=== PATIENT | female | born 1950 | race Caucasian/White ===

== ENCOUNTER → 2017-02-09 | Outpatient (CLI) | payer OTHER ==
--- NOTE | 2017-02-09 09:45 | DIAGNOSTIC IMAGING REPORT ---
ABDOMINAL ULTRASOUND, RIGHT UPPER QUADRANT HISTORY: GALLBLADDER POLYP. COMPARISON: Abdominal ultrasound 07/09/2015. Abdominal CT 02/22/2016. FINDINGS: Pancreas: The pancreas demonstrates a normal echotexture. Liver: Slight increase in size in the 2.3 x 2.0 x 1.6 cm hyperechoic lesion within the right hepatic lobe. No new hepatic lesions. Gallbladder: No gallbladder wall thickening. No gallstones. A few small polyps within the gallbladder measuring up to 2 mm. CBD: 3 mm. Right kidney: No hydronephrosis. IMPRESSION: 1. Slight increase in size in the 2.3 x 2.0 x 1.6 cm hyperechoic lesion within the right hepatic lobe. Continued follow-up is recommended. 2. A few small gallbladder polyps measuring up to 2 mm. No gallstones. Electronically signed by: Venkata Lugo M.D. 02/09/2017 9:44 AM Dictated Date/Time: 02/09/2017 9:40 AM
== END | disposition home or self-care (01) ==
LOC: C.ULTR 08:53
PROVIDERS: ATTEND Nurse Practitioner Family
DX: K82.4 Cholesterolosis of gallbladder (principal)

== ENCOUNTER → 2017-04-28 | Outpatient (CLI) | payer OTHER ==
--- NOTE | 2017-04-28 12:43 | MAMMOGRAPHY REPORT ---
BILATERAL DIGITAL SCREENING MAMMOGRAM WITH CAD: 04/28/2017 CLINICAL HISTORY: Routine screening. Patient has no complaints. TECHNIQUE: Current study was also evaluated with a Computer Aided Detection (CAD) system. Bilateral CC and MLO views were obtained. COMPARISON: Comparison is made to exams dated: 04/26/2016 mammogram, 04/22/2015 mammogram, 04/21/2014 damien mogram, 04/17/2013 mammogram, 04/16/2012 mammogram, and 04/14/2011 mammogram - [facility] BREAST COMPOSITION: The tissue of both breasts is heterogeneously dense, which may obscure small mas ses. FINDINGS: No suspicious masses, calcifications, or areas of architectural distortion are noted in ei ther breast. There has been no significant interval change compared to prior exams. IMPRESSION: ACR BI-RADS CATEGORY 1: NEGATIVE There is no mammographic evidence of malignancy. A 1 year screening mammogram is recommended. The pa tient will receive written notification of the results. Approximately 10% of breast cancers are not detected with mammography. A negative mammographic report should not delay biopsy if a clinically suggestive mass is present. Nathalia Veliz M.D. /:04/28/2017 10:25:12 Superintendent Meters: Odalis MARTIN(Bon)(M), [facility] letter sent: Normal 1/2 BI-RADS Code: ACR BI-RADS Category 1: Negative
== END | disposition home or self-care (01) ==
LOC: C.MAMM 09:22
PROVIDERS: ATTEND Family Medicine
DX: Z12.31 Encounter for screening mammogram for malignant neoplasm of breast (principal)

== ENCOUNTER → 2017-05-31 | Outpatient (CLI) | payer OTHER ==
--- NOTE | 2017-05-31 08:18 | DIAGNOSTIC IMAGING REPORT ---
Biliary ultrasound CLINICAL HISTORY: K82.4,K76.9 gallbladder polyps. Hepatic lesion. COMPARISON STUDY: 02/09/2017 FINDINGS: The pancreas appears normal as visualized. There is no ductal dilatation. The common bile duct measures 3 mm. There is no right-sided hydronephrosis. There is a stable 19 mm echogenic lesion within the right lobe of the liver. This is consistent with the patient's suspected hepatic hemangioma. No gallstones are visualized. There are a few equivocal tiny gallbladder polyps. IMPRESSION: Stable 19 mm echogenic lesion within the right lobe of the liver, consistent with a hepatic hemangioma Electronically signed by: Dagoberto Ponce M.D. 05/31/2017 8:17 AM Dictated Date/Time: 05/31/2017 8:15 AM
== END | disposition home or self-care (01) ==
LOC: C.ULTR 06:56
PROVIDERS: ATTEND Nurse Practitioner Family
DX: K82.4 Cholesterolosis of gallbladder (principal); K76.9 Liver disease, unspecified

== ENCOUNTER 2025-03-21 14:31 | Observation (INO) ==
--- NOTE | 2025-03-21 14:53 | Emergency Department Note ---
Impression & Plan New onset atrial flutter, Atrial flutter with rapid ventricular response, Palpitations ED Provider Note NAME: ERICA GILBERT AGE: 74 SEX: F : 1950 ARRIVES VIA: Walk-In INFORMANT: Patient ED PROVIDER(S): Segundo Sutton MD CHIEF COMPLAINT: new atrial flutter, referred PLAN: Disposition: Admit MEDICAL DECISION MAKING: The patient is a pleasant 74-year-old woman who presents to the emergency department via walk-in accompanied by family and referred by her PCP office after having an outpatient EKG demonstrated new atrial flutter. The patient's EKGs also appeared to have some artifact and interpretation by the machine to suggest ST elevation however likely artifactual from sawtooth pattern. Patient denies having any chest pain or shortness of breath. She has any nausea or vomiting. She reports that she has had a "fast heart rate for months. Most recently she reports having outpatient colonoscopy where she was told that she should "get that checked out". Otherwise she denies any dizziness, headache, symptoms. On evaluation the patient is no distress, afebrile with heart rate in the 120s- 130s and atrial flutter and vital signs otherwise stable. She appears clinically dry. EKG demonstrates atrial flutter without overt acute ischemia. Chest x-ray negative for acute cardiopulmonary process per my preliminary independent interpretation. WBC, H/H and platelets within normal limits. Chemistry without metabolic acidosis. Electrolytes and LFTs unremarkable. Total bili 1.7, nonspecific LFTs otherwise normal. High-sensitivity troponin within normal limits. Lipase is normal. TSH within limits. UA without evidence of infection. Trace ketones noted as clinically dry appearance. Patient's heart rate did improve somewhat with IV fluid hydration. However still remained in atrial flutter. Given the upcoming weekend the patient and family at bedside agree with plan for admission for further management and assessment. 5 mg of IV Lopressor was ordered for additional rate control. Will defer anticoagulation to admitting team. Case was discussed with Dr. Millan, [facility] hospitalist, [facility] hospitalist service to evaluate the patient for admission. Further management per admitting team. Triage Nursing notes reviewed and agree them. Prior/external medical records reviewed Vital Signs: reviewed Differential diagnosis: Premature contractions, electrolyte abnormality, cardiac dysrhythmia, thyroid dysfunction, pulmonary embolism, infection, gastrointestinal, as well as other pathologies. ER treatment provided: See below. Diagnostics interpreted by me: ECG: Atrial flutter with variable AV block, 115 bpm, nonspecific ST abnormality, no overt ST ovation or depression, QTc 395, QRS 70. Cardiac Monitoring: An order for continuous cardiac monitoring was placed and demonstrated Atrial flutter with variable AV block, 115 bpm. Laboratory studies: See below Imaging studies: See below Consultation(s): Dr. Millan, [facility] hospitalist. HPI: Per MDM. ROS: See above HPI for pertinent positives & negatives. A total of 10 systems reviewed and were otherwise negative. VITALS:See Below PHYSICAL EXAMINATION: GENERAL: Awake, alert, well-appearing, in no distress HENT: Normocephalic, atraumatic. Oropharynx with dry mucous membranes and otherwise unremarkable. EYES: Normal conjunctiva. Sclera non-icteric. NECK: Supple. No nuchal rigidity. FROM. No JVD. RESPIRATORY: Clear to auscultation. CARDIAC: Tachycardic rate, normal rhythm. Extremities warm and well perfused. Pulses equal. ABDOMEN: Soft, non-distended. No tenderness to palpation. No rebound or guarding. No masses. MUSCULOSKELETAL: Chest examination reveals no tenderness. The back is symmetrical on inspection without obvious abnormality. There is no CVA tenderness to palpation. No joint edema. LOWER EXTREMITIES: Calves are equal size bilaterally and non-tender. No edema. No discoloration. NEURO: Normal sensorium. No sensory or motor deficits noted. SKIN: No rash or jaundice noted. Segundo Sutton MD Past Med/Surg History Problem List Palpitations (Acute) Atrial flutter with rapid ventricular response (Acute) New onset atrial flutter (Acute) Atrial flutter Gallbladder polyp Medical History Squamous cell skin cancer Hyperbilirubinemia Surgical History Hx of cataract surgery Status post left breast lumpectomy Hx of colonoscopy Family History Brother Cancer Diabetes Father Diabetes Mother Hypertension Social History Smoking Status: Never smoker Hx Alcohol Use: Yes Alcohol type: beer and wine Alcohol Intake Frequency: Monthly or Less Hx Substance Use: No Preferred Language: Algerian marital status: current occupational status: unemployed How many Children do You have: 3 Feels Safe at Home: Yes Diet: regular during the past year weight has: remained stable Allergies Allergies Allergy/AdvReac Type Severity Reaction Status Date / Time amoxicillin Allergy Intermediate RASH Verified 03/21/25 15:59 ciprofloxacin [Cipro] Allergy Intermediate RASH Verified 03/21/25 15:59 nitrofurantoin Allergy Intermediate GI UPSET Verified 03/21/25 15:59 Sulfa (Sulfonamide Allergy Unknown CAN'T Verified 03/21/25 15:59 Antibiotics) REMEMBER Penicillins AdvReac Unknown TAKES Verified 03/21/25 15:59 AMOXIL NO OCCASSION--NO PROBS Home Meds Home Medications Medication Instructions Recorded Confirmed calcium 600 mg (as 1 cap PO DAILY 08/30/24 03/21/25 carbonate)-vitamin D3 10 mcg (400 unit) capsule cholecalciferol (vitamin D3) 50 50 mcg PO Q OTHER DAY 08/30/24 03/21/25 mcg (2,000 unit) capsule Results & Data (ED) Vital Signs Vital Signs - 24 hr 03/21/25 14:35 03/21/25 14:54 03/21/25 15:08 Temperature 36.9 C Temperature Source Temporal Artery Scan Pulse Rate 117 H 117 H 126 H Pulse Rate [Apical] Pulse Rate from SpO2 Sensor 118 H Pulse Rhythm Regular Pulse Rhythm [Apical] Pulse Strength Normal Respiratory Rate 16 15 Respiratory Effort / Characteristics Non-Labored Spontaneous Respiratory Depth Normal Respiratory Pattern Regular Blood Pressure 129/89 140/110 H Blood Pressure [Right Arm] Blood Pressure Mean 102 120 Blood Pressure Mean [Right Arm] Blood Pressure Position Sitting Blood Pressure Position [Right Arm] Pulse Oximetry 98 98 Oxygen Delivery Method Room Air Sepsis Recent Fever Within 48 Hours No Sepsis New/Unexplained Change in Mental Status N/A Sepsis Action Taken by Nursing No Action Required 03/21/25 15:17 03/21/25 15:18 03/21/25 15:42 Temperature Temperature Source Pulse Rate 108 H 105 H Pulse Rate [Apical] 102 H Pulse Rate from SpO2 Sensor 106 H Pulse Rhythm Irregular Pulse Rhythm [Apical] Irregular Pulse Strength Respiratory Rate 19 18 23 Respiratory Effort / Characteristics Non-Labored Spontaneous Respiratory Depth Normal Respiratory Pattern Regular Blood Pressure 124/94 Blood Pressure [Right Arm] 131/93 Blood Pressure Mean 104 Blood Pressure Mean [Right Arm] 105 Blood Pressure Position Blood Pressure Position [Right Arm] Sitting Pulse Oximetry 100 100 100 Oxygen Delivery Method Room Air Room Air Sepsis Recent Fever Within 48 Hours Sepsis New/Unexplained Change in Mental Status Sepsis Action Taken by Nursing 03/21/25 16:12 03/21/25 16:27 03/21/25 16:30 Temperature Temperature Source Pulse Rate 103 H 115 H Pulse Rate [Apical] Pulse Rate from SpO2 Sensor 107 H Pulse Rhythm Pulse Rhythm [Apical] Pulse Strength Respiratory Rate 23 16 Respiratory Effort / Characteristics Respiratory Depth Respiratory Pattern Blood Pressure 136/108 H 142/108 H Blood Pressure [Right Arm] 119/82 Blood Pressure Mean 117 119 Blood Pressure Mean [Right Arm] 94 Blood Pressure Position Blood Pressure Position [Right Arm] Lying Pulse Oximetry 99 100 93 Oxygen Delivery Method Room Air Sepsis Recent Fever Within 48 Hours Sepsis New/Unexplained Change in Mental Status Sepsis Action Taken by Nursing 03/21/25 16:51 03/21/25 17:00 03/21/25 17:00 Temperature Temperature Source Pulse Rate 102 H Pulse Rate [Apical] Pulse Rate from SpO2 Sensor 105 H Pulse Rhythm Pulse Rhythm [Apical] Pulse Strength Respiratory Rate 15 Respiratory Effort / Characteristics Respiratory Depth Respiratory Pattern Blood Pressure 143/105 H 137/104 H 137/104 H Blood Pressure [Right Arm] Blood Pressure Mean 117 120 120 Blood Pressure Mean [Right Arm] Blood Pressure Position Blood Pressure Position [Right Arm] Pulse Oximetry 99 Oxygen Delivery Method Sepsis Recent Fever Within 48 Hours Sepsis New/Unexplained Change in Mental Status Sepsis Action Taken by Nursing 03/21/25 17:06 03/21/25 17:12 03/21/25 17:30 Temperature Temperature Source Pulse Rate 104 H 118 H Pulse Rate [Apical] Pulse Rate from SpO2 Sensor 104 H 107 H Pulse Rhythm Pulse Rhythm [Apical] Pulse Strength Respiratory Rate 22 19 Respiratory Effort / Characteristics Respiratory Depth Respiratory Pattern Blood Pressure 140/105 H Blood Pressure [Right Arm] Blood Pressure Mean 120 Blood Pressure Mean [Right Arm] Blood Pressure Position Blood Pressure Position [Right Arm] Pulse Oximetry 100 Oxygen Delivery Method Sepsis Recent Fever Within 48 Hours Sepsis New/Unexplained Change in Mental Status Sepsis Action Taken by Nursing 03/21/25 17:53 03/21/25 17:54 03/21/25 18:00 Temperature Temperature Source Pulse Rate 108 H 107 H Pulse Rate [Apical] Pulse Rate from SpO2 Sensor 107 H Pulse Rhythm Pulse Rhythm [Apical] Pulse Strength Respiratory Rate 19 Respiratory Effort / Characteristics Respiratory Depth Respiratory Pattern Blood Pressure Blood Pressure [Right Arm] 114/83 Blood Pressure Mean Blood Pressure Mean [Right Arm] 93 Blood Pressure Position Blood Pressure Position [Right Arm] Lying Pulse Oximetry 98 95 Oxygen Delivery Method Sepsis Recent Fever Within 48 Hours Sepsis New/Unexplained Change in Mental Status Sepsis Action Taken by Nursing 03/21/25 18:06 03/21/25 18:12 03/21/25 18:13 Temperature Temperature Source Pulse Rate 109 H 109 H 106 H Pulse Rate [Apical] Pulse Rate from SpO2 Sensor 110 H 109 H Pulse Rhythm Pulse Rhythm [Apical] Pulse Strength Respiratory Rate 21 19 Respiratory Effort / Characteristics Respiratory Depth Respiratory Pattern Blood Pressure 142/99 H Blood Pressure [Right Arm] Blood Pressure Mean Blood Pressure Mean [Right Arm] Blood Pressure Position Blood Pressure Position [Right Arm] Pulse Oximetry 98 99 Oxygen Delivery Method Sepsis Recent Fever Within 48 Hours Sepsis New/Unexplained Change in Mental Status Sepsis Action Taken by Nursing 03/21/25 18:24 03/21/25 18:27 03/21/25 18:33 Temperature Temperature Source Pulse Rate 121 H 121 H 122 H Pulse Rate [Apical] Pulse Rate from SpO2 Sensor 120 H 119 H 121 H Pulse Rhythm Pulse Rhythm [Apical] Pulse Strength Respiratory Rate 20 17 22 Respiratory Effort / Characteristics Respiratory Depth Respiratory Pattern Blood Pressure 148/114 H Blood Pressure [Right Arm] Blood Pressure Mean 125 Blood Pressure Mean [Right Arm] Blood Pressure Position Blood Pressure Position [Right Arm] Pulse Oximetry 99 98 98 Oxygen Delivery Method Sepsis Recent Fever Within 48 Hours Sepsis New/Unexplained Change in Mental Status Sepsis Action Taken by Nursing 03/21/25 19:00 03/21/25 19:03 03/21/25 19:30 Temperature Temperature Source Pulse Rate 117 H 120 H 106 H Pulse Rate [Apical] Pulse Rate from SpO2 Sensor 120 H 110 H Pulse Rhythm Pulse Rhythm [Apical] Pulse Strength Respiratory Rate 19 15 Respiratory Effort / Characteristics Respiratory Depth Respiratory Pattern Blood Pressure 134/108 H 134/108 H 130/107 H Blood Pressure [Right Arm] Blood Pressure Mean 116 114 Blood Pressure Mean [Right Arm] Blood Pressure Position Blood Pressure Position [Right Arm] Pulse Oximetry 98 98 Oxygen Delivery Method Sepsis Recent Fever Within 48 Hours Sepsis New/Unexplained Change in Mental Status Sepsis Action Taken by Nursing 03/21/25 19:30 Temperature Temperature Source Pulse Rate 104 H Pulse Rate [Apical] Pulse Rate from SpO2 Sensor 102 H Pulse Rhythm Pulse Rhythm [Apical] Pulse Strength Respiratory Rate 16 Respiratory Effort / Characteristics Respiratory Depth Respiratory Pattern Blood Pressure 132/107 H Blood Pressure [Right Arm] Blood Pressure Mean 117 Blood Pressure Mean [Right Arm] Blood Pressure Position Blood Pressure Position [Right Arm] Pulse Oximetry 97 Oxygen Delivery Method Sepsis Recent Fever Within 48 Hours Sepsis New/Unexplained Change in Mental Status Sepsis Action Taken by Nursing Laboratory Data Attestation: I reviewed the patient's lab results. 03/21/25 14:45 03/21/25 14:45 Lab Results 03/21/25 03/21/25 03/21/25 Range/Units 14:45 14:55 17:50 WBC 5.28 (4.8-10.8) K/ul RBC 4.92 (4.20-5.40) M/uL Hgb 14.6 (12.0-16.0) g/dl POC Hgb 15.3 (12.0-16.0) g/dl Hct 44.8 (37.0-47.0) % POC Hct 45 (37-47) % MCV 91.1 (80.0-100.0) fL MCH 29.7 (25.0-34.0) pg MCHC 32.6 (32.0-36.0) g/dL RDW Std Deviation 45.4 (36.4-46.3) fL RDW Coeff of Chaya 13.6 (11.5-14.5) % Plt Count 234 (130-400) K/uL MPV 9.5 (9.4-12.4) fL Immature Gran % (Auto) 0.2 % Neut % (Auto) 63.1 % Lymph % (Auto) 28.2 % [place] % (Auto) 6.8 % Eos % (Auto) 1.1 % Baso % (Auto) 0.6 % Neut # (Auto) 3.33 (1.40-6.50) K/uL Lymph # (Auto) 1.49 (1.20-3.40) K/uL [place] # (Auto) 0.36 (0.11-0.59) K/uL Eos # (Auto) 0.06 (0.00-0.50) K/uL Baso # (Auto) 0.03 (0.00-0.20) K/uL Immature Gran # (Auto) 0.01 (0.01-0.20) K/uL PT 11.3 (9.0-12.0) Seconds INR 1.0 (0.9-1.1) POC Sodium 138 (135-144) mmol/L Sodium 137 (136-145) mmol/L POC Potassium 4.2 (3.3-5.0) mmol/L Potassium 4.3 (3.5-5.1) mmol/L POC Chloride 101 (101-112) mmol/L Chloride 101 (98-107) mmol/L Carbon Dioxide 30 (21-32) mmol/L POC Total CO2 27 (24-31) mmol/L Anion Gap 6 (3-11) POC Anion Gap 16.0 (16-25) mmol/L POC BUN 16 (7-18) mg/dl BUN 16 (6-23) mg/dl Creatinine 1.01 (0.6-1.2) mg/dl POC Creatinine 1.0 (0.6-1.3) mg/dl Est Cr Clr Drug Dosing 38.4 ml/min eGFR 58.05 BUN/Creatinine Ratio 15.8 (10-20) Glucose 103 H (70-99(Fasting)) mg/dl POC Glucose (other) 98 (70-99) mg/dl Calcium 10.4 H (8.6-10.3) mg/dl POC Ioniz Calcium Shandra 1.28 (1.12-1.32) mmol/l Phosphorus 4.4 (2.5-4.9) mg/dl Magnesium 2.1 (1.7-2.4) mg/dl Total Bilirubin 1.7 H (0.2-1.0) mg/dl AST 31 (13-39) U/L ALT 24 (7-52) U/L Alkaline Phosphatase 53 (34-104) U/L Troponin I High Sens 6.3 (0-14) pg/ml Total Protein 7.5 (6.0-8.3) gm/dl Albumin 4.5 (3.4-5.0) gm/dl Globulin 3.0 (2.5-4.0) gm/dl Albumin/Globulin Ratio 1.5 (0.9-2) Lipase 38 (11-82) U/L TSH 2.283 (0.300-4.500) uIu/ml Urine Color Yellow Urine Appearance Clear (Clear) Urine pH 7.0 (4.5-7.5) Ur Specific [place] 1.006 (1.000-1.030) Urine Protein Negative (Negative) Urine Glucose (UA) Negative (Negative) Urine Ketones Trace H (Negative) Urine Blood Negative (Negative) Urine Nitrite Negative (Negative) Urine Bilirubin Negative (Negative) Urine Urobilinogen Negative (Negative) Ur Leukocyte Esterase Negative (Negative) Urine Comment Administered Medications Apixaban (Apixaban 5 Mg Tablet) 5 mg PO BID ZO Stop: 04/20/25 22:21 Last Admin: 03/21/25 22:48 Dose: 5 mg Documented By: DELPHINE Lactated Ringer's (Lr) 1,000 mls @ 80 mls/hr IV .[id number] ZO Stop: 03/22/25 10:51 Last Admin: 03/21/25 22:50 Dose: 80 mls/hr Documented By: DELPHINE Discontinued Medications Sodium Chloride (Nss) 1,000 mls @ 999 mls/hr IV .[id number] ONE Stop: 03/21/25 15:52 Last Infusion: 03/21/25 16:24 Dose: Infused Documented By: Admin: 03/21/25 14:54 Dose: 999 mls/hr Documented By: ABDULLAHI Metoprolol Tartrate (Metoprolol Tartrate 1 Mg/Ml Vial) 5 mg IV NOW STA Stop: 03/21/25 18:03 Last Admin: 03/21/25 18:13 Dose: 5 mg Documented By: XOCHITL Metoprolol Tartrate (Metoprolol Tartrate 25 Mg Tab) 25 mg PO NOW STA Stop: 03/21/25 19:27 Last Admin: 03/21/25 19:37 Dose: 25 mg Documented By: YAS Imaging Data Radiologist's Impression: Chest X-Ray 03/21/25 14:52 EXAM: Portable AP chest radiograph TECHNIQUE: AP portable radiograph of the chest was obtained. INDICATION: Chest pain. Comparison: None FINDINGS: LINES and TUBES: None CARDIOVASCULAR: Cardiac silhouette is mildly enlarged in size. LUNGS/PLEURA: No focal consolidation identified. Mild pulmonary vascular congestion and chronic interchanges of the lungs. The lungs are hyperinflated. Possible COPD may be present. No large pleural fluid. No discernible pneumothorax. OSSEOUS/OTHER: No displaced acute osseous process identified. IMPRESSION: Mild cardiac enlargement and chronic interstitial changes of the lungs with possible emphysema with hyperinflated lungs. Electronically signed by Andrew Bahena 03-21-2025 4:55 PM Discharge Plan Visit Data Chief Complaint: Abnormal Labs/Diagnostic Testing Stated Complaint: DOC REFERRAL, ACUTE INFARCT, ABN DIAG ED Provider: Segundo Sutton Discharge Problem: New onset atrial flutter, Atrial flutter with rapid ventricular response, Palpitations Patient Disposition: Admitted As Inpatient Condition: Good Discharge Instructions Interventions: ED Discharge Assessment Last Done: 03/21/25 22:11
[2025-03-21] MEDS: SODIUM CHLORIDE 0.9% 1,000 ML IV ONE (14:54)
[2025-03-21 15:04] LABS: Basophils # (auto) 0.03 K/uL (0.00-0.20); Basophils % (auto) 0.6 %; Eosinophils # (auto) 0.06 K/uL (0.00-0.50); Eosinophils % (auto) 1.1 %; Hematocrit (blood only) 44.8 % (37.0-47.0); Hemoglobin 14.6 g/dl (12.0-16.0); Immature Granulocytes # (auto) 0.01 K/uL (0.01-0.20); Immature Granulocytes % (auto) 0.2 %; Lymphocytes # (auto) 1.49 K/uL (1.20-3.40); Lymphocytes % (auto) 28.2 %; Mean Corpuscular Hemoglobin 29.7 pg (25.0-34.0); Mean Corpuscular Hgb Conc 32.6 g/dL (32.0-36.0); Mean Corpuscular Volume 91.1 fL (80.0-100.0); Mean Platelet Volume 9.5 fL (9.4-12.4); Monocytes # (auto) 0.36 K/uL (0.11-0.59); Monocytes % (auto) 6.8 %; Neutrophils # (auto) 3.33 K/uL (1.40-6.50); Neutrophils % (auto) 63.1 %; Platelet Count 234 K/uL (130-400); RDW Coefficient of Variation 13.6 % (11.5-14.5); RDW Standard Deviation 45.4 fL (36.4-46.3); Red Blood Count 4.92 M/uL (4.20-5.40); White Blood Count 5.28 K/ul (4.8-10.8)
[2025-03-21 15:08] LABS: iSTAT Hemoglobin 15.3 g/dl (12.0-16.0); iSTAT Ionized Calcium 1.28 mmol/l (1.12-1.32); iSTAT Potassium 4.2 mmol/L (3.3-5.0)
[2025-03-21 15:28] LABS: Albumin Globulin Ratio 1.5 (0.9-2); BUN Creatinine Ratio 15.8 (10-20); Bilirubin,Total 1.7 mg/dl (0.2-1.0); Calcium 10.4 mg/dl (8.6-10.3); Creatinine Clr Calc Pharmacy 38.4 ml/min; Magnesium 2.1 mg/dl (1.7-2.4); Phosphorus 4.4 mg/dl (2.5-4.9); Potassium 4.3 mmol/L (3.5-5.1); Total Protein 7.5 gm/dl (6.0-8.3)
[2025-03-21 15:31] LABS: Prothrombin Time 11.3 Seconds (9.0-12.0)
[2025-03-21 15:34] LABS: Troponin I High Sensitivity 6.3 pg/ml (0-14)
[2025-03-21 15:43] LABS: Thyroid Stimulating Hormone 2.283 uIu/ml (0.300-4.500)
--- NOTE | 2025-03-21 16:55 | XRay Report ---
EXAM: Portable AP chest radiograph TECHNIQUE: AP portable radiograph of the chest was obtained. INDICATION: Chest pain. Comparison: None FINDINGS: LINES and TUBES: None CARDIOVASCULAR: Cardiac silhouette is mildly enlarged in size. LUNGS/PLEURA: No focal consolidation identified. Mild pulmonary vascular congestion and chronic interchanges of the lungs. The lungs are hyperinflated. Possible COPD may be present. No large pleural fluid. No discernible pneumothorax. OSSEOUS/OTHER: No displaced acute osseous process identified. IMPRESSION: Mild cardiac enlargement and chronic interstitial changes of the lungs with possible emphysema with hyperinflated lungs. Electronically signed by Andrew Bahena 03-21-2025 4:55 PM
[2025-03-21 18:04] LABS: Appearance Urine Clear (Clear); Bilirubin Urine Negative (Negative); Blood Urine Negative (Negative); Color Urine Yellow; Glucose Urine UA Negative (Negative); Ketones Urine Trace (Negative); Leukocyte Esterase Urine Negative (Negative); Nitrite Urine Negative (Negative); Protein Urine Negative (Negative); Specific Gravity Urine 1.006 (1.000-1.030); Urobilinogen Urine Negative (Negative)
[2025-03-21] MEDS: METOPROLOL TARTRATE 1 MG/ML VIAL IV STA (18:13)
--- NOTE | 2025-03-21 19:35 | History & Physical Report ---
Date of Service March 21, 2025 Assessment & Plan (1) Atrial flutter: Plan 74-year-old female presenting with new onset atrial flutter. Patient reports she has had palpitations ongoing for the last several months. No chest pain or evidence of failure. No prior cardiac history. Found to be in atrial flutter with variable block heart rate ranging 102 to 122 bpm while in the ER. #Atrial flutterNew Onset. Rate poorly controlled at present. [id number] = 3 (age of 74, female). Electrolytes within normal limits as is TSH. No murmurs appreciated on physical exam. No clinical evidence of heart failure. Admit to medical telemetry Will continue IV fluid LR at 80 mL/h x 1 additional liter Check 2D echo - suspect non-valvular AF. Patient with no prior echocardiograms in the system. No murmur on exam. Will initiate rate control with metoprolol 25 mg p.o. twice daily with first dose now. Goal HR < 110bpm Will initiate anticoagulation with Eliquis 5 mg p.o. twice daily Patient should be set up with Cardiology outpatient regarding possible cardioversion or ablation for definitive management of her atrial flutter. Likely ongoing for several months- would benefit from rhythm control if possible. History of Present Illness Chief Complaint: Palpitations Primary Care Provider: Nila Fraga DO Josy Sotelo Is a very pleasant 74-year-old female with history of hyperbilirubinemia presenting with palpitations. Patient reports that since the winter she has been experiencing rapid heart rate and palpitations. She states that this has been ongoing and is worse when lying down. She denies chest pain, shortness of breath, edema, orthopnea, dizziness, syncope or episodes of confusion. No prior history of heart disease or arrhythmia. In the emergency room patient found to be in new atrial flutter with heart rate ranging 102 to 122 bpm ER course: Normal saline x 1 L Metoprolol 5 mg IV x 1 dose Metoprolol 25 mg p.o. ordered- not yet given Allergies Allergy/AdvReac Type Severity Reaction Status Date / Time amoxicillin Allergy Intermediate RASH Verified 03/21/25 15:59 ciprofloxacin [Cipro] Allergy Intermediate RASH Verified 03/21/25 15:59 nitrofurantoin Allergy Intermediate GI UPSET Verified 03/21/25 15:59 Sulfa (Sulfonamide Allergy Unknown CAN'T Verified 03/21/25 15:59 Antibiotics) REMEMBER Penicillins AdvReac Unknown TAKES Verified 03/21/25 15:59 AMOXIL NO OCCASSION--NO PROBS Home Medications Medication Instructions Recorded Confirmed Type calcium 600 mg (as 1 cap PO DAILY 08/30/24 03/21/25 History carbonate)-vitamin D3 10 mcg (400 unit) capsule cholecalciferol (vitamin D3) 50 50 mcg PO Q OTHER DAY 08/30/24 03/21/25 History mcg (2,000 unit) capsule Past Med/Surg History Problem List (Updated 03/21/25 @ 19:42 by Aurelia Reyes DO) Atrial flutter Gallbladder polyp Medical History Squamous cell skin cancer Hyperbilirubinemia Surgical History Hx of cataract surgery Status post left breast lumpectomy Hx of colonoscopy Family History Brother Cancer Diabetes Father Diabetes Mother Hypertension Social History Smoking Status: Never smoker Hx Alcohol Use: Yes Alcohol type: beer and wine Alcohol Intake Frequency: Monthly or Less Hx Substance Use: No Preferred Language: Croatian marital status: current occupational status: unemployed How many Children do You have: 3 Feels Safe at Home: Yes Diet: regular during the past year weight has: remained stable Review of Systems Review of Systems: All systems reviewed & are unremarkable except as noted in HPI & below Physical Exam Physical Exam: General: patient resting comfortably, NAD, non-toxic in appearance, AA&O x 4 Skin: warm, dry, intact, no rashes or lesions HEENT: NC/AT, PERRL, EOMI, anicteric sclera, conjunctiva without injection, external ear normal to inspection and nontender, nares patent, moist mucus membranes, dentition intact, no oropharyngeal lesions, neck supple, trachea midline, no LAD, no thyromegaly, no JVD Heart: +S1/S2, irregularly irregular, tachycardic no m/r/g Lungs: equal air entry bilaterally, no rales/rhonchi/wheezes Abd: +BS, soft, NT/ND, no masses/organomegaly/ascites Ext: warm, 2+ pulses in UE/LE bilaterally, no clubbing/cyanosis or edema Neuro: nonfocal, patient AA&O x 4, speech intact, no facial droop, moving all extremities on command with equal strength 5/5 Results & Data Results & Data Vital Signs (Past 12 Hours) Vital Signs Temp Pulse Pulse Resp BP BP Pulse Ox 03/21/25 19:03 120 H 19 134/108 H 98 03/21/25 18:33 122 H 22 148/114 H 98 03/21/25 18:27 121 H 17 98 03/21/25 18:24 121 H 20 99 03/21/25 18:13 106 H 142/99 H 03/21/25 18:12 109 H 19 99 03/21/25 18:06 109 H 21 98 03/21/25 18:00 114/83 95 03/21/25 17:54 107 H 19 98 03/21/25 17:53 108 H 03/21/25 17:30 140/105 H 03/21/25 17:12 118 H 19 03/21/25 17:06 104 H 22 100 03/21/25 17:00 137/104 H 03/21/25 17:00 137/104 H 03/21/25 16:51 102 H 15 143/105 H 99 03/21/25 16:30 119/82 93 03/21/25 16:27 115 H 16 142/108 H 100 03/21/25 16:12 103 H 23 136/108 H 99 03/21/25 15:42 105 H 23 124/94 100 03/21/25 15:18 102 H 18 131/93 100 03/21/25 15:17 108 H 19 100 03/21/25 15:08 126 H 03/21/25 14:54 117 H 15 140/110 H 98 03/21/25 14:35 36.9 C 117 H 16 129/89 98 O2 Del Method 03/21/25 19:03 03/21/25 18:33 03/21/25 18:27 03/21/25 18:24 03/21/25 18:13 03/21/25 18:12 03/21/25 18:06 03/21/25 18:00 03/21/25 17:54 03/21/25 17:53 03/21/25 17:30 03/21/25 17:12 03/21/25 17:06 03/21/25 17:00 03/21/25 17:00 03/21/25 16:51 03/21/25 16:30 Room Air 03/21/25 16:27 03/21/25 16:12 03/21/25 15:42 03/21/25 15:18 Room Air 03/21/25 15:17 Room Air 03/21/25 15:08 03/21/25 14:54 03/21/25 14:35 Room Air Laboratory Results Laboratory Results WBC 5.28 K/ul (4.8-10.8) 03/21/25 14:45 RBC 4.92 M/uL (4.20-5.40) 03/21/25 14:45 Hgb 14.6 g/dl (12.0-16.0) 03/21/25 14:45 POC Hgb 15.3 g/dl (12.0-16.0) 03/21/25 14:55 Hct 44.8 % (37.0-47.0) 03/21/25 14:45 POC Hct 45 % (37-47) 03/21/25 14:55 MCV 91.1 fL (80.0-100.0) 03/21/25 14:45 MCH 29.7 pg (25.0-34.0) 03/21/25 14:45 MCHC 32.6 g/dL (32.0-36.0) 03/21/25 14:45 RDW Std Deviation 45.4 fL (36.4-46.3) 03/21/25 14:45 RDW Coeff of Chaya 13.6 % (11.5-14.5) 03/21/25 14:45 Plt Count 234 K/uL (130-400) 03/21/25 14:45 MPV 9.5 fL (9.4-12.4) 03/21/25 14:45 Immature Gran % (Auto) 0.2 % 03/21/25 14:45 Neut % (Auto) 63.1 % 03/21/25 14:45 Lymph % (Auto) 28.2 % 03/21/25 14:45 [place] % (Auto) 6.8 % 03/21/25 14:45 Eos % (Auto) 1.1 % 03/21/25 14:45 Baso % (Auto) 0.6 % 03/21/25 14:45 Neut # (Auto) 3.33 K/uL (1.40-6.50) 03/21/25 14:45 Lymph # (Auto) 1.49 K/uL (1.20-3.40) 03/21/25 14:45 [place] # (Auto) 0.36 K/uL (0.11-0.59) 03/21/25 14:45 Eos # (Auto) 0.06 K/uL (0.00-0.50) 03/21/25 14:45 Baso # (Auto) 0.03 K/uL (0.00-0.20) 03/21/25 14:45 Immature Gran # (Auto) 0.01 K/uL (0.01-0.20) 03/21/25 14:45 PT 11.3 Seconds (9.0-12.0) 03/21/25 14:45 INR 1.0 (0.9-1.1) 03/21/25 14:45 POC Sodium 138 mmol/L (135-144) 03/21/25 14:55 Sodium 137 mmol/L (136-145) 03/21/25 14:45 POC Potassium 4.2 mmol/L (3.3-5.0) 03/21/25 14:55 Potassium 4.3 mmol/L (3.5-5.1) 03/21/25 14:45 POC Chloride 101 mmol/L (101-112) 03/21/25 14:55 Chloride 101 mmol/L (98-107) 03/21/25 14:45 Carbon Dioxide 30 mmol/L (21-32) 03/21/25 14:45 POC Total CO2 27 mmol/L (24-31) 03/21/25 14:55 Anion Gap 6 (3-11) 03/21/25 14:45 POC Anion Gap 16.0 mmol/L (16-25) 03/21/25 14:55 POC BUN 16 mg/dl (7-18) 03/21/25 14:55 BUN 16 mg/dl (6-23) 03/21/25 14:45 Creatinine 1.01 mg/dl (0.6-1.2) 03/21/25 14:45 POC Creatinine 1.0 mg/dl (0.6-1.3) 03/21/25 14:55 Est Cr Clr Drug Dosing 38.4 ml/min 03/21/25 14:45 eGFR 58.05 03/21/25 14:45 BUN/Creatinine Ratio 15.8 (10-20) 03/21/25 14:45 Glucose 103 mg/dl (70-99(Fasting)) H 03/21/25 14:45 POC Glucose (other) 98 mg/dl (70-99) 03/21/25 14:55 Calcium 10.4 mg/dl (8.6-10.3) H 03/21/25 14:45 POC Ioniz Calcium Shandra 1.28 mmol/l (1.12-1.32) 03/21/25 14:55 Phosphorus 4.4 mg/dl (2.5-4.9) 03/21/25 14:45 Magnesium 2.1 mg/dl (1.7-2.4) 03/21/25 14:45 Total Bilirubin 1.7 mg/dl (0.2-1.0) H 03/21/25 14:45 AST 31 U/L (13-39) 03/21/25 14:45 ALT 24 U/L (7-52) 03/21/25 14:45 Alkaline Phosphatase 53 U/L (34-104) 03/21/25 14:45 Troponin I High Sens 6.3 pg/ml (0-14) 03/21/25 14:45 Total Protein 7.5 gm/dl (6.0-8.3) 03/21/25 14:45 Albumin 4.5 gm/dl (3.4-5.0) 03/21/25 14:45 Globulin 3.0 gm/dl (2.5-4.0) 03/21/25 14:45 Albumin/Globulin Ratio 1.5 (0.9-2) 03/21/25 14:45 Lipase 38 U/L (11-82) 03/21/25 14:45 TSH 2.283 uIu/ml (0.300-4.500) 03/21/25 14:45 Urine Color Yellow 03/21/25 17:50 Urine Appearance Clear (Clear) 03/21/25 17:50 Urine pH 7.0 (4.5-7.5) 03/21/25 17:50 Ur Specific [place] 1.006 (1.000-1.030) 03/21/25 17:50 Urine Protein Negative (Negative) 03/21/25 17:50 Urine Glucose (UA) Negative (Negative) 03/21/25 17:50 Urine Ketones Trace (Negative) H 03/21/25 17:50 Urine Blood Negative (Negative) 03/21/25 17:50 Urine Nitrite Negative (Negative) 03/21/25 17:50 Urine Bilirubin Negative (Negative) 03/21/25 17:50 Urine Urobilinogen Negative (Negative) 03/21/25 17:50 Ur Leukocyte Esterase Negative (Negative) 03/21/25 17:50 Urine Comment 03/21/25 17:50 Impressions Chest X-Ray 03/21/25 14:52 EXAM: Portable AP chest radiograph TECHNIQUE: AP portable radiograph of the chest was obtained. INDICATION: Chest pain. Comparison: None FINDINGS: LINES and TUBES: None CARDIOVASCULAR: Cardiac silhouette is mildly enlarged in size. LUNGS/PLEURA: No focal consolidation identified. Mild pulmonary vascular congestion and chronic interchanges of the lungs. The lungs are hyperinflated. Possible COPD may be present. No large pleural fluid. No discernible pneumothorax. OSSEOUS/OTHER: No displaced acute osseous process identified. IMPRESSION: Mild cardiac enlargement and chronic interstitial changes of the lungs with possible emphysema with hyperinflated lungs. Electronically signed by Andrew Bahena 03-21-2025 4:55 PM ECG Additional Comments: EKG with atrial flutter with variable block, no ischemic changes Code Status & VTE Plan VTE Prophylaxis Plan VTE Prophylaxis will be ordered: Yes PG Care Time/CCT Total # of Minutes Spent Total Time Spent with Patient: Total time spent is greater than 50% in coordination of care (as documented) at patient's floor/unit and/or counseling patient: Coding Level of Care Code 55397 INT INP/OBS CARE 2/55MIN Diagnoses Atrial flutter I48.92
[2025-03-21] MEDS: METOPROLOL TARTRATE 25 MG TAB PO STA (19:37)
[2025-03-21] MEDS ORDERED: DOCUSATE SODIUM 100 MG CAP PO PRN (22:22)
[2025-03-21] MEDS ORDERED: MELATONIN 3 MG TAB PO PRN (22:22)
[2025-03-21] MEDS ORDERED: ACETAMINOPHEN 325 MG TAB PO PRN (22:22)
[2025-03-21] MEDS ORDERED: ONDANSETRON INJ 2 MG/ML 2 ML VIAL IV PRN (22:22)
[2025-03-21] MEDS: APIXABAN 5 MG TABLET PO SCH (22:48)
[2025-03-21] MEDS: LACTATED RINGER'S 1,000 ML IV SCH (22:50)
[2025-03-22] MEDS: METOPROLOL TARTRATE 25 MG TAB PO SCH (09:09)
--- NOTE | 2025-03-22 09:42 | XCELERA ---
[id number]\[id number]}___[id number]
[2025-03-22 10:07] LABS: BUN Creatinine Ratio 14.5 (10-20); Calcium 8.9 mg/dl (8.6-10.3); Creatinine Clr Calc Pharmacy 46.6 ml/min; Potassium 4.1 mmol/L (3.5-5.1)
--- NOTE | 2025-03-22 14:48 | Hospitalist Progress Note ---
Date of Service March 22, 2025 Assessment & Plan (1) Atrial flutter with rapid ventricular response: (2) Right ventricular dysfunction: (3) Snoring: Plan 74yo female who presented with new onset atrial flutter with RVR. Patient has had palpitations ongoing for the last several months - since at least January. No cardiopulmonary symptoms otherwise and no limitation in her activities. #Atrial flutter with RVR - -[id number] score = 4 (age of 74, female, CHF on echo -TSH wnl -K, mag wnl -fortunately no signs of decompensated CHF on exam despite her echo findings -started on metoprolol tartrate 25mg BID without any appreciable change in HRs -started on Eliquis 5mg BID for anticoagulation purposes -ideally rhythm control would be best approach but cannot perform cardioversion unless MCKENZIE is done first -- suspect she has had a.flutter for 2+ months -consult Dr Szymanski from [facility] for consideration of MCKENZIE cardioversion -defer additional rate control to Dr Szymanski -uncertain if right heart disease is due to undiagnosed/untreated SHAHEED vs long- standing atrial dysrhythmia -will advise outpatient sleep study #?thyroid nodules - -consider thyroid u/s care d/w Dr Szymanski from cardiology Admission and Anticipated Discharge Date Admission Date: March 21, 2025 Subjective patient reports having palpitations/tachycardia starting at least in January when she was wintering in [place], [place] since she was feeling well with no cardiopulmonary symptoms otherwise, walking w/o difficulty, etc she simply did not have it addressed they came back to [place] in the spring she recalls at least 2x at doctor visits the staff mentioning her pulse was high she had a colonoscopy recently at [facility] and was told her pulse was high, too she does snore per her but has never had a sleep study no h/o PEs/DVTs no h/o lung disease since admission HRs have been consistently >100 recently treated for UTI as outpatient told she had microscopic blood on u/a but u/a this admission - negative for blood Review of Systems 2 Review of Systems: cv - no chest pain or tightness pulm - no dyspnea or DUQUE GI - no N/V Physical Exam 2 Physical Exam: gen - thin, pleasant, NAD neck - 2 small thyroid nodules (<1cm), no goiter, no JVD mouth - MMM heart - tachy, s1 s2, irregular, no murmur lungs - CTA b/l abd - soft NT ND BS+ ext - no edema, pulses 2+ b/l Results & Data Results & Data Vital Signs (Past 12 Hours) Vital Signs Temp Pulse Pulse Resp BP Pulse Ox O2 Del Method 03/22/25 14:33 36.6 C 126 H 18 101/72 95 Room Air 03/22/25 11:14 36.8 C 102 H 16 106/69 97 Room Air 03/22/25 08:13 36.6 C 125 H 16 111/78 97 Room Air 03/22/25 07:50 100 H 03/22/25 03:11 36.4 C L 92 H 16 107/68 96 Room Air Laboratory Results Laboratory Results - last 24 hr 03/22/25 09:37 Sodium 139 Potassium 4.1 Chloride 104 Carbon Dioxide 29 Anion Gap 6 BUN 12 Creatinine 0.83 Est Cr Clr Drug Dosing 46.6 eGFR 73.47 BUN/Creatinine Ratio 14.5 Glucose 111 H Calcium 8.9 Diagnostic Findings echo: PG Care Time/CCT Total # of Minutes Spent Total Time Spent with Patient: Total time spent is greater than 50% in coordination of care (as documented) at patient's floor/unit and/or counseling patient: Coding Level of Care Code 62479 SUB INP/OBS CARE 2/35MIN Diagnoses Atrial flutter with rapid ventricular response I48.92 Right ventricular dysfunction I51.9 Snoring R06.83
--- NOTE | 2025-03-22 15:39 | Cardiology Consultation ---
Date of Consultation March 22, 2025 Assessment & Plan (1) Atrial flutter: (2) Right ventricular dysfunction: Plan 1. Atrial flutter: Unclear duration, but at least several weeks if not months. Difficult to evaluate overall cardiac function given the rapid nature of her atrial flutter, but likely some element of dysfunction. Remarkably asymptomatic. We did had an extensive discussion regarding options for treatment. The main concern would be reducing her risk of stroke and she has been started on systemic anticoagulation at the appropriate dose of apixaban. Heart rates did not respond well to metoprolol. However, I think we will adopt a rhythm control strategy and plan for cardioversion. She is elected to stay in the hospital so that this can be accomplished on March 24. Will perform a MCKENZIE beforehand to exclude left atrial appendage thrombus. She would likely stay on systemic anticoagulation for a few weeks afterwards and then we will plan for more definitive therapy with an ablation. Likely eligible for discharge subsequent to cardioversion on Monday. 2. Right ventricular dysfunction: This was the most striking feature of her echocardiogram. She does not have symptoms of pulmonary disease. No symptoms suggestive of pulmonary embolus. No hypoxia. Snoring at nighttime but no evidence of hypoxia at nighttime. Emphysema reported on her chest x-ray, but again no pulmonary symptoms. I suppose this is possibly related to longstanding atrial flutter. Will get a better assessment both with MCKENZIE and subsequent echocardiogram when she is returned to a normal rhythm. Certainly no evidence of decompensated right ventricular failure. History of Present Illness Reason for Consultation: Atrial flutter Requesting Physician: Alverto Attending Physician: Denis Del Toro MD History of Present Illness The patient is a 74-year-old woman without a known history of cardiac disease who presented to the hospital due to concerns over an elevated heart rate and palpitations. [place]. She stated for a few months she has been noticing an element of palpitation. She feels that her heart rate is fast at times. However, she was otherwise feeling well and is able to maintain a good level of activity. She specifically denies symptoms such as chest discomfort or dyspnea. No dizziness or lightheadedness. She does not have any monitors to check her vital signs at home. However, she was seen in the outpatient setting in January and February for presumed urinary tract infection. On both occasions her heart rate was noted to be elevated but the narrative suggested that her rhythm was regular and her heart rate was normal. She also reports having undergone a colonoscopy recently and was told that her heart rate was elevated and that she should "get it checked out". On initial evaluation here she was noted to be in an atrial flutter with variable AV conduction. At the time my interview the patient was feeling well. She been ambulatory around her room without dizziness or lightheadedness. Still an occasional sensation of palpitation. Again no chest pain or dyspnea. Allergies Allergy/AdvReac Type Severity Reaction Status Date / Time amoxicillin Allergy Intermediate RASH Verified 03/21/25 15:59 ciprofloxacin [Cipro] Allergy Intermediate RASH Verified 03/21/25 15:59 nitrofurantoin Allergy Intermediate GI UPSET Verified 03/21/25 15:59 Sulfa (Sulfonamide Allergy Unknown CAN'T Verified 03/21/25 15:59 Antibiotics) REMEMBER Penicillins AdvReac Unknown TAKES Verified 03/21/25 15:59 AMOXIL NO OCCASSION--NO PROBS Home Medications Medication Instructions Recorded Confirmed Type calcium 600 mg (as 1 cap PO DAILY 08/30/24 03/21/25 History carbonate)-vitamin D3 10 mcg (400 unit) capsule cholecalciferol (vitamin D3) 50 50 mcg PO Q OTHER DAY 08/30/24 03/21/25 History mcg (2,000 unit) capsule Patient History Medical History Squamous cell skin cancer Hyperbilirubinemia Surgical History Hx of cataract surgery Status post left breast lumpectomy Hx of colonoscopy Family History Brother Cancer Diabetes Father Diabetes Mother Hypertension Social History Smoking Status: Never smoker Second Hand Exposure: No; Do You Dip or Chew Tobacco: No; Tobacco Cessation Education Requested by Patient: No Hx Alcohol Use: Yes Alcohol type: wine Alcohol Intake Frequency: Monthly or Less Hx Substance Use: No Preferred Language: Sami Communication Ability: Effective Cosmetic Dentist Required: No Beliefs That Will Affect Care: None marital status: Current Living Situation: Spouse current occupational status: unemployed How many Children do You have: 3 Other Information That Helps Us Care for You: No Feels Safe at Home: Yes Safety Concerns: Feels Safe At This Time Diet: regular during the past year weight has: remained stable Assistive Devices: Glasses Review of Systems 2 Review of Systems: Per HPI. Claims to sleep well. Reported snoring. No history of lower extremity edema. Physical Exam Physical Exam: She is alert and oriented x3. Mood affect appear normal. She answered all questions appropriately. HEENT: Sclerae are anicteric. Pupils are equal and reactive to light and accommodation. Extraocular movements were intact. Neuro: Cranial nerves intact Lungs: Lungs are clear to auscultation bilaterally. There are no rales wheezes or rhonchi. She has normal respiratory effort without use of accessory muscles. There is normal pulmonary excursion. Cardiac: The rhythm was irregular. S1 and S2 were normal. There are no murmurs on examination. The PMI was not markedly displaced on palpation. Abdomen: The abdomen was soft and nontender. Extremities: Patient has bilateral radial pulses that are equal in intensity. There is no evidence cyanosis or clubbing. There was no evidence of significant peripheral edema bilaterally. Skin: There are no rashes noted on examination today. Results & Data Vital Signs (Past 12 Hours) Vital Signs Temp Pulse Pulse Resp BP Pulse Ox O2 Del Method 03/22/25 15:36 123 H 03/22/25 14:33 36.6 C 126 H 18 101/72 95 Room Air 03/22/25 11:14 36.8 C 102 H 16 106/69 97 Room Air 03/22/25 08:13 36.6 C 125 H 16 111/78 97 Room Air 03/22/25 07:50 100 H Laboratory Results Abnormal Lab Results 03/22/25 09:37 Sodium 139 Potassium 4.1 Chloride 104 Carbon Dioxide 29 Anion Gap 6 BUN 12 Creatinine 0.83 Est Cr Clr Drug Dosing 46.6 eGFR 73.47 BUN/Creatinine Ratio 14.5 Glucose 111 H Calcium 8.9 Diagnostic Findings Echocardiogram 03/22/2025: Borderline reduced LV systolic function with ejection fraction around 50%. Right ventricle appeared dilated with moderately reduced function. Moderately dilated inferior vena cava. Small pericardial effusion. PG Care Time/CCT Total # of Minutes Spent Total Time Spent with Patient: Total time spent is greater than 50% in coordination of care (as documented) at patient's floor/unit and/or counseling patient: Coding Level of Care Code 62105 INT INP/OBS CARE MIN Diagnoses Atrial flutter I48.92 Right ventricular dysfunction I51.9
--- NOTE | 2025-03-23 07:06 | Electrocardiogram Report ---
Test Reason : Blood Pressure : */* mmHG Vent. Rate : 115 BPM Atrial Rate : 254 BPM P-R Int : * ms QRS Dur : 70 ms QT Int : 286 ms P-R-T Axes : 86 98 42 degrees QTcB Int : 395 ms Atrial flutter with variable A-V block Rightward axis Nonspecific ST abnormality Abnormal ECG Confirmed by Bill Szymanski ([id number]) on 03/23/2025 7:06:09 AM Referred By: REFERRED SELF Confirmed By: Bill Szymanski
--- NOTE | 2025-03-23 07:06 | Electrocardiogram Report ---
Test Reason : Blood Pressure : */* mmHG Vent. Rate : 101 BPM Atrial Rate : 245 BPM P-R Int : * ms QRS Dur : 70 ms QT Int : 332 ms P-R-T Axes : -59 1 -8 degrees QTcB Int : 430 ms Atrial flutter with variable A-V block Cannot rule out Inferior infarct , age undetermined Abnormal ECG When compared with ECG of 21-Mar-2025 14:43, (unconfirmed) ST no longer elevated in Inferior leads Confirmed by Bill Szymanski ([id number]) on 03/23/2025 7:05:59 AM Referred By: REFERRED SELF Confirmed By: Bill Szymanski
--- NOTE | 2025-03-23 09:50 | Cardiology Progress Note ---
Date of Service March 23, 2025 Assessment & Plan (1) Right ventricular dysfunction: (2) Atrial flutter: Plan 1. Atrial flutter: Unclear duration. Possibly weeks or months. Surprisingly asymptomatic with the exception of palpitations. An extensive discussion yesterday regarding treatment options. She is elected to stay in the hospital for a cardioversion tomorrow. Given the unknown duration of the arrhythmia we will perform a MCKENZIE prior. She has been started on systemic anticoagulation. I do not believe she requires any rate control medications at this point. Subsequent to cardioversion she could likely be discharged with outpatient follow-up and eventual catheter-based therapy. 2. Right ventricular enlargement: No evidence of RV failure. Unclear etiology overall. Admission and Anticipated Discharge Date Admission Date: March 22, 2025 Subjective This morning patient clinically feeling well. She reports sleeping well last night. She been amatory without significant symptoms. No dyspnea, dizziness or chest pain. Some sense of palpitation at times. Review of Systems Review of Systems: Per HPI Physical Exam Physical Exam: She is alert and oriented x3. Mood affect appear normal. She answered all questions appropriately. HEENT: Sclerae are anicteric. Pupils are equal and reactive to light and accommodation. Extraocular movements were intact. Neuro: Cranial nerves intact Lungs: Normal respiratory effort Skin: There are no rashes noted on examination today. Results & Data Vital Signs (Past 12 Hours) Vital Signs Temp Pulse Pulse Resp BP Pulse Ox O2 Del Method 03/23/25 08:19 36.6 C 131 H 17 95/67 L 98 Room Air 03/23/25 04:00 36.7 C 98 H 18 114/83 96 Room Air 03/22/25 23:00 36.5 C 96 H 18 112/73 96 Room Air 03/22/25 21:57 98 H Laboratory Results Abnormal Lab Results 03/22/25 09:37 Sodium 139 Potassium 4.1 Chloride 104 Carbon Dioxide 29 Anion Gap 6 BUN 12 Creatinine 0.83 Est Cr Clr Drug Dosing 46.6 eGFR 73.47 BUN/Creatinine Ratio 14.5 Glucose 111 H Calcium 8.9 PG Care Time/CCT Total # of Minutes Spent Total Time Spent with Patient: Total time spent is greater than 50% in coordination of care (as documented) at patient's floor/unit and/or counseling patient: Coding Level of Care Code 01904 SUB INP/OBS CARE 2/35MIN Diagnoses Right ventricular dysfunction I51.9 Atrial flutter I48.92
--- NOTE | 2025-03-23 19:19 | Hospitalist Progress Note ---
Date of Service March 23, 2025 Assessment & Plan (1) Atrial flutter with rapid ventricular response: (2) Right ventricular dysfunction: (3) Snoring: Plan 74yo female who presented with new onset atrial flutter with RVR. Patient has had palpitations ongoing for the last several months - since at least January. No cardiopulmonary symptoms otherwise and no limitation in her activities. #Atrial flutter with RVR - -[id number] score = 4 (age of 74, female, CHF on echo) -TSH wnl -K, mag wnl -fortunately no signs of decompensated CHF on exam despite her echo findings -started on metoprolol tartrate 25mg BID without any appreciable change in HRs - Dr Szymanski d/c it today -started on Eliquis 5mg BID for anticoagulation purposes -consulted Dr Szymanski from [facility] for consideration of MCKENZIE cardioversion - he will perform such tomorrow, 03/24; NPO after MN tonight -uncertain if right heart disease is due to undiagnosed/untreated SHAHEED vs long- standing atrial dysrhythmia vs other -advised outpatient sleep study #?thyroid nodules - -consider thyroid u/s as outpatient -TSH wnl #right heart systolic dysfunction - -fortunately no signs of decompensation -no symptoms from such -will need f/u of this post-d/c -outpatient sleep study advised -of note - no lung disease and no h/o PE to account for the right heart disease Admission and Anticipated Discharge Date Admission Date: March 22, 2025 Subjective tele - continues with aflutter with RVR no change in HRs with metoprolol does feel palpitations, but she doesn't feel poorly no dizziness no chest pain no dyspnea agreeable to MCKENZIE cardioversion tomorrow with Dr Szymanski no new complaints Review of Systems Review of Systems: cv - no edema of LEs; no chest pain pulm - no cough, no dyspnea, no DUQUE GI - no abd pain Physical Exam Physical Exam: gen - thin, laying in bed, NAD neck - no JVD mouth - MMM heart - tachy, s1 s2, irregular, no murmur lungs - CTA b/l abd - soft NT ND BS+ ext - no edema, pulses 2+ b/l psych - pleasant, a/o x 3 Results & Data Results & Data Vital Signs (Past 12 Hours) Vital Signs Temp Pulse Pulse Resp BP Pulse Ox O2 Del Method 03/23/25 15:59 36.7 C 72 20 104/72 95 Room Air 03/23/25 14:00 122 H 03/23/25 11:18 36.6 C 126 H 18 96/68 L 100 Room Air 03/23/25 08:19 36.6 C 131 H 17 95/67 L 98 Room Air 03/23/25 08:00 117 H PG Care Time/CCT Total # of Minutes Spent Total Time Spent with Patient: Total time spent is greater than 50% in coordination of care (as documented) at patient's floor/unit and/or counseling patient: Coding Level of Care Code 12192 SUB INP/OBS CARE 11/09MIN Diagnoses Atrial flutter with rapid ventricular response I48.92 Right ventricular dysfunction I51.9 Snoring R06.83
[2025-03-24 03:39] VITALS: RESP 16
--- NOTE | 2025-03-24 08:00 | Anesthesiology Consultation ---
Date of Service March 24, 2025 Assessment & Plan Chart Review Chart Review: Acceptable Risk for Surgery ASA ASA3 Proposed Anesthesia Anesthesia Type: General Risk / Benefits Reviewed With: PT / POA / Parent / Guardian, Accepts Plan and Informed Consent Obtained History Surgery Operation Date: 03/24/25 07:15 Proposed Procedures p Transesophageal Echo w/Anesthesia - Bill Szymanski MD s Cardioversion Awning Hanger Helper w/Anesthesia - Bill Szymanski MD Height/Weight Height: 5 ft 3 in Weight: 49.7 kg Allergies Allergy/AdvReac Type Severity Reaction Status Date / Time amoxicillin Allergy Intermediate RASH Verified 03/24/25 07:24 ciprofloxacin [Cipro] Allergy Intermediate RASH Verified 03/24/25 07:24 nitrofurantoin Allergy Intermediate GI UPSET Verified 03/24/25 07:24 Sulfa (Sulfonamide Allergy Unknown CAN'T Verified 03/24/25 07:24 Antibiotics) REMEMBER Penicillins AdvReac Unknown TAKES Verified 03/24/25 07:24 AMOXIL NO OCCASSION--NO PROBS Medications Home Medications Medication Instructions Recorded Confirmed Last Taken calcium 600 mg (as 1 cap PO DAILY 08/30/24 03/21/25 03/21/25 carbonate)-vitamin D3 10 mcg (400 unit) capsule cholecalciferol (vitamin D3) 50 50 mcg PO Q OTHER DAY 08/30/24 03/21/25 03/20/25 mcg (2,000 unit) capsule Active Medications Generic Name Dose Route Start Last Admin Trade Name Freq PRN Reason Stop Dose Admin Apixaban 5 mg 03/21/25 22:22 03/23/25 20:54 Apixaban 5 Mg Tablet PO 04/20/25 22:21 5 mg BID ZO Administration NPO Date Last Intake of Fluids: 03/23/25 Time Last Intake of Fluids: 19:00 Date Last Intake of Solids: 03/23/25 Past Medical History Medical History Squamous cell skin cancer Hyperbilirubinemia Past Family History Family History Brother Cancer Diabetes Father Diabetes Mother Hypertension Past Surgical History Surgical History Hx of cataract surgery Status post left breast lumpectomy Hx of colonoscopy Past Anesthesia History No Hx of Anesthesia Complications History of PONV No Hx of PONV Social History Smoking Status: Never smoker Do You Dip or Chew Tobacco: No Hx Alcohol Use: Yes Alcohol type: wine alcohol intake frequency: a few times a week Hx Substance Use: No substance use type: does not use Review of Systems ROS Unobtainable: All systems reviewed & are unremarkable except as noted in HPI & below Constitutional: as per Subjective / HPI Eyes: as per Subjective / HPI Ear, Nose, Mouth, Throat: as per Subjective / HPI Respiratory: as per Subjective / HPI Cardiovascular: as per Subjective / HPI Gastrointestinal: as per Subjective / HPI Genitourinary (Female): as per Subjective / HPI Musculoskeletal: as per Subjective / HPI Integumentary: as per Subjective / HPI Neurologic: as per Subjective / HPI Psychiatric: as per Subjective / HPI Endocrine: as per Subjective / HPI Hematologic / Lymphatic: as per Subjective / HPI Allergy / Immunological: as per Subjective / HPI Physical Exam Vital Signs Last Vital Signs Temp 36.6 C 03/24/25 07:18 Pulse 127 H 03/24/25 07:18 Resp 16 03/24/25 07:18 BP 112/88 03/24/25 07:18 Pulse Ox 98 03/24/25 07:18 O2 Del Method Room Air 03/24/25 07:18 Constitutional no acute distress ENMT Mouth: no dentition abnormality Thyromental Distance: < 3.5 Finger Breadths Mallampati Class: II Neck normal visual inspection and trachea midline Respiratory normal respiratory effort; no respiratory distress Auscultation: lungs clear to auscultation bilaterally Cardiovascular Rate/Rhythm: + tachycardic Musculoskeletal Extremities: extremities normal to inspection Skin no rashes Neurologic moves all extremities Psychiatric Orientation: oriented x 3 Testing Laboratory Results 03/21/25 14:45 03/22/25 09:37 PT 11.3 Seconds (9.0-12.0) 03/21/25 14:45 INR 1.0 (0.9-1.1) 03/21/25 14:45 Urine Color Yellow 03/21/25 17:50 Urine Appearance Clear (Clear) 03/21/25 17:50 Urine pH 7.0 (4.5-7.5) 03/21/25 17:50 Ur Specific [place] 1.006 (1.000-1.030) 03/21/25 17:50 Urine Protein Negative (Negative) 03/21/25 17:50 Urine Glucose (UA) Negative (Negative) 03/21/25 17:50 Urine Ketones Trace (Negative) H 03/21/25 17:50 Urine Nitrite Negative (Negative) 03/21/25 17:50 Ur Leukocyte Esterase Negative (Negative) 03/21/25 17:50
--- NOTE | 2025-03-24 08:22 | Cardioversion ---
Date of Service March 24, 2025 PG Electrical Cardioversion Rp Electrical Cardioversion Report Procedure performed: Cardioversion Indication: The patient is a 74-year-old woman with persistent atrial flutter Staff audio visual aide: Bill Szymanski MD Procedure in detail: The patient was informed of the risks benefits and alternatives to the intended procedure. She understood such which proceed. She was taken to the cardiac catheterization suite holding area. A general anesthetic was administered by the Anesthesiology Service. Once appropriately anesthetized, the patient was cardioverted using 30 joules delivered in a biphasic fashion. This returned the patient to sinus rhythm. The patient tolerated procedure well, there were no immediate complications. Patient was neurologically intact subsequent to the procedure. Impression: Successful cardioversion from atrial flutter to normal sinus rhythm Coding Level of Care Code 44053 CARDIOVERSION, ELECTIVE Additional Codes Electrical Cardioversion Report ([id number])
--- NOTE | 2025-03-24 09:50 | Anesthesiology Progress Note ---
Date of Service March 24, 2025 Anesthesia Post Procedure Vital Signs Vital Signs: Temp Pulse Pulse Resp BP Pulse Ox O2 Del Method 03/24/25 08:30 74 16 89/55 L 99 Room Air 03/24/25 08:15 54 L 16 86/64 L 99 Room Air 03/24/25 08:10 62 16 96/69 L 100 Oxymask 03/24/25 07:18 36.6 C 127 H 16 112/88 98 Room Air 03/24/25 03:25 36.3 C L 119 H 16 110/80 95 Room Air 03/23/25 22:35 36.4 C L 106 H 14 116/84 97 Room Air 03/23/25 22:05 122 H 03/23/25 19:25 36.4 C L 112 H 18 94/62 L 97 Room Air 03/23/25 15:59 36.7 C 72 20 104/72 95 Room Air 03/23/25 14:00 122 H 03/23/25 11:18 36.6 C 126 H 18 96/68 L 100 Room Air O2 Flow Rate 03/24/25 08:30 03/24/25 08:15 03/24/25 08:10 4 03/24/25 07:18 03/24/25 03:25 03/23/25 22:35 03/23/25 22:05 03/23/25 19:25 03/23/25 15:59 03/23/25 14:00 03/23/25 11:18 Transfer of Care Handoff Completed per policy Notes Mental Status: alert / awake / arousable Patient Amnestic to Procedure: Yes Nausea / Vomiting: adequately controlled Pain: adequately controlled Airway Patency, RR, SpO2: stable & adequate BP & HR: stable & adequate Hydration State: stable & adequate Anesthetic Complications: no major complications apparent
[2025-03-24 15:42] VITALS: TEMP 97.9
--- NOTE | 2025-03-24 16:00 | XCELERA ---
[id number] [id number]
[2025-03-24] MEDS: SODIUM CHLORIDE 0.9% 500 ML IV ONE (16:02)
[2025-03-24 16:37] VITALS: BP 105/60; PULSE 70; O2SAT 97
[2025-03-24] MEDS: BENZOCAINE/TETRACAIN/BUTAM 50 APPLN/5 GM CAN EXT ONE (16:41)
--- NOTE | 2025-03-24 17:17 | Discharge Summary ---
Discharge Summary Date of Service date of admission - March 21, 2025 date of discharge - March 24, 2025 Principal Dx & Hospital Course #1 = Principal Diagnosis (1) Atrial flutter with rapid ventricular response: (2) Right ventricular dysfunction: (3) Snoring: (4) Bilateral hand numbness: Plan 74yo female who presented with new onset atrial flutter with RVR. Patient had had palpitations ongoing for the last several months - since at least January 2025. No cardiopulmonary symptoms otherwise and no limitation in her activities. #Atrial flutter with RVR - -[id number] score = 4 (age of 74, female, CHF on echo) -TSH wnl -K, mag wnl -fortunately no signs of decompensated CHF on exam despite her echo findings -started on metoprolol tartrate 25mg BID without any appreciable change in HRs - thus, the metoprolol was discontinued -started on Eliquis 5mg BID for anticoagulation purposes -as the a.flutter had likely been present for weeks chemical cardioversion with amiodarone was not possible/was not safe -consulted Dr Szymanski from [facility] [place] [facility] for consideration of MCKENZIE cardioversion - he performed such on the AM of 03/24/25 -following her cardioversion she remained in normal rhythm for the remainder of her stay -it was uncertain if the right heart disease as seen on echo is due to undiagnosed/untreated SHAHEED vs long-standing atrial dysrhythmia vs other -advised outpatient sleep study given her snoring -patient will continue Eliquis at discharge, follow-up with Dr Szymanski in the cardiology clinic, and there will be consideration to performing atrial flutter ablation in the future as a permanent solution #right heart systolic dysfunction - -fortunately no signs of decompensation while hospitalized -no symptoms from such although modestly low BPs could be due to her right heart dysfunction -will need f/u of this post-discharge -outpatient sleep study advised -of note - no lung disease and no h/o PE to account for the right heart disease #?thyroid nodules - -possible nodules on physical exam -consider thyroid u/s as outpatient -TSH wnl #b/l hand numbness - -patient mentioned several hours prior to discharge home that she had been having multiple episodes of b/l hand numbness for several months -she does have neck pain on occasion -the b/l hand numbness comes & goes; it improves without any intervention -discussed with her the possibility of cervical spine disease causing the symptoms vs carpal tunnel syndrome vs other -recommended she discuss this issue with her PCP; could consider referral to neurology for EMG studies; could consider cervical spine imaging; etc. Notes For Next Care Provider f/u with Dr Bill Szymanski, [facility], after discharge to discuss possible atrial flutter ablation in the future IF PATIENT REMAINS ON ANTICOAGULATION LONG-TERM HER CO-PAY FOR THE ELIQUIS IS >$500/MONTH -options for ongoing Rx would include obtaining samples of Eliquis for her vs changing to coumadin & setting her up with the anticoagulation clinic -latter option would be more sustainable long-term Consider thyroid u/s -- ? of small thyroid nodules on examination Medication Changes From Visit Eliquis 5mg BID Admission HPI Per Admitting Provider Josy Sotelo Is a very pleasant 74-year-old female with history of hyperbilirubinemia presenting with palpitations. Patient reports that since the winter she has been experiencing rapid heart rate and palpitations. She states that this has been ongoing and is worse when lying down. She denies chest pain, shortness of breath, edema, orthopnea, dizziness, syncope or episodes of confusion. No prior history of heart disease or arrhythmia. In the emergency room patient found to be in new atrial flutter with heart rate ranging 102 to 122 bpm ER course: Normal saline x 1 L Metoprolol 5 mg IV x 1 dose Metoprolol 25 mg p.o. ordered- not yet given Discharge Exam gen - thin, laying in bed, NAD neck - no JVD, ?small thyroid nodules b/l mouth - MMM heart - RRR, s1 s2, no murmur lungs - CTA b/l abd - soft NT ND BS+ ext - no edema, pulses 2+ b/l psych - pleasant, a/o x 3 neuro - strength 5/5 x b/l upper extremities all muscle groups tested Discharge Plan Discharge Items Patient Disposition: Home - Self-Care Reason For Visit: ATRIAL FLUTTER Discharge Diagnosis: 1. atrial flutter - successful cardioversion by Dr Bill Szymanski on 03/24/25 2. right heart dysfunction - etiology uncertain; to be followed by cardiology 3. snoring - sleep study advised 4. recurrent episodes of bilateral hand numbness - follow-up with family medicine/neurology needed Condition on Discharge: Good Activity: Resume your previous activity Driving/Machine Use: NO DRIVING for 24 hours Non-emergency contact: Primary Care Provider and Dry Kiln Worker Call non-emergency contact if: you have any medication questions Follow-up/Referrals: Bill Szymanski MD [Physician] - (Dr Szymanski's office will be scheduling a follow-up appointment for you ) Nila Fraga DO [Primary Care Provider] - 03/26/25 8:25 am (appt. [facility] Tellez at [facility] location.) Diet: Regular Addtl Attending Provider Instructions: Ms Sotelo, You were hospitalized due to rapid atrial flutter. We suspect you have had this abnormal heart rhythm for weeks or a couple of months. You were seen by Dr Bill Szymanski who performed "MCKENZIE Cardioversion." During this procedure Dr Szymanski checked the heart for blood clots. None were seen, then electricity (shock) was given to the heart to restore normal heart rhythm. You required 1 shock to go back to normal rhythm. No further atrial flutter was seen after the procedure. Atrial flutter does carry a risk of stroke as blood clots can form in the left side of your heart when someone has atrial flutter. To reduce the risk of stroke you have been placed on a blood thinner (anticoagulant) called "ELIQUIS." See additional instructions below. Recommendations - 1. take Eliquis 5mg twice daily. Start this TOMORROW MORNING. 2. check your blood pressure and heart rate twice daily at home. If your heart rate is consistently over 100 you may be back in atrial flutter. In addition, you had palpitations with your atrial flutter. Thus, if you have palpitations or any concern the atrial flutter has returned please seek medical attention. 3. due to the right heart enlargement / dysfunction seen on your echocardiogram please talk to your family doctor about getting a sleep study to rule out sleep apnea. 4. due to recurrent hand numbness in both hands please talk to your family doctor about getting additional testing to rule out a nutritional deficiency causing it, carpal tunnel syndrome causing it, a neck problem contributing, etc. Follow-up - see separate section Return to [facility] if - * you have any concerns you have gone back into atrial flutter * you feel dizzy or lightheaded * you are short of breath or have chest pains * you have bleeding from any location as listed below * any other concerns It was our pleasure to care for you! Addtl Customer Complaint Service Supervisor Provider Instructions: Blood Thinner (Anticoagulant) Medication Instructions: Your atrial flutter condition is typically treated with an anticoagulant. Anticoagulants will thin your blood to help prevent clot formation in your heart. Your blood thinner is ELIQUIS. * You should take your medication exactly as directed. * Never skip a dose. * Never take a double dose. If you miss a dose, take it as soon as you remember. Call your Primary Care doctor if you experience any of the following: * Chest Pain * Sudden Shortness of Breath * Rapid or pounding heart beat * Fainting * Dizziness * Cough with blood or bloody sputum * Sweating more than normal * Bruises * Heavy or uncontrolled bleeding * Blood in your urine, stool or vomit * Black or tarry stools * Heavy nose bleeding Pending Studies at Discharge: No Stand-Alone Forms: My [employer], Smoking Cessation Medications and DC Order Prescriptions: New Eliquis 5 mg Tablet 5 mg PO BID Qty: 60 5RF Continued calcium carbonate-vitamin D3 600 mg-10 mcg (400 unit) capsule 1 cap PO DAILY cholecalciferol (vitamin D3) 50 mcg (2,000 unit) capsule 50 mcg PO Q OTHER DAY Discharge Orders: Discharge Order (Routine); Ordered 03/24/25 Ordered By: Denis Jaquez/Other Patient Handouts: Having Catheter Ablation, What Are Snoring and Sleep Apnea?, Understanding Atrial Flutter Admission Data Admit Date/Time: 03/22/25 18:54 Attending Provider: Denis Del Toro Admit Provider: Aurelia Reyes Primary Care Provider: Nila Fraga Other Providers: Bill Szymanski; Aurelia Reyes Other Interventions: Discharge Summary Assessment (RN) Last Done: 03/24/25 17:26 Hospital Stay Data Consultations [facility] - Dr Bill Szymanski Procedures Performed Operation Date: 03/24/25 07:15 Actual Procedures Cardioversion - Bill Szymanski MD Echo Transesophageal - Bill Szymanski MD Echo Color Flow - Bill Szymanski MD Diagnostic Imagining Performed 1. echocardiogram: 2. MCKENZIE Cardioversion - Dr Bill Szymanski, [facility] [facility]. -no atrial thrombus seen -thus cardioversion performed subsequently with jain of NSR Pending Results Patient Have Any Pending Studies at Discharge: No Discharge Instructions Given to Patient (Per Discharging Provider) Ms Sotelo, You were hospitalized due to rapid atrial flutter. We suspect you have had this abnormal heart rhythm for weeks or a couple of months. You were seen by Dr Bill Szymanski who performed "MCKENZIE Cardioversion." During this procedure Dr Szymanski checked the heart for blood clots. None were seen, then electricity (shock) was given to the heart to restore normal heart rhythm. You required 1 shock to go back to normal rhythm. No further atrial flutter was seen after the procedure. Atrial flutter does carry a risk of stroke as blood clots can form in the left side of your heart when someone has atrial flutter. To reduce the risk of stroke you have been placed on a blood thinner (anticoagulant) called "ELIQUIS." See additional instructions below. Recommendations - 1. take Eliquis 5mg twice daily. Start this TOMORROW MORNING. 2. check your blood pressure and heart rate twice daily at home. If your heart rate is consistently over 100 you may be back in atrial flutter. In addition, you had palpitations with your atrial flutter. Thus, if you have palpitations or any concern the atrial flutter has returned please seek medical attention. 3. due to the right heart enlargement / dysfunction seen on your echocardiogram please talk to your family doctor about getting a sleep study to rule out sleep apnea. 4. due to recurrent hand numbness in both hands please talk to your family doctor about getting additional testing to rule out a nutritional deficiency causing it, carpal tunnel syndrome causing it, a neck problem contributing, etc. Follow-up - see separate section Return to [facility] if - * you have any concerns you have gone back into atrial flutter * you feel dizzy or lightheaded * you are short of breath or have chest pains * you have bleeding from any location as listed below * any other concerns It was our pleasure to care for you! Total Time Total Time Spent Total Time Spent (In Minutes): 40 Coding Level of Care Code 09396 INP/OBS DISCH >30 MIN Diagnoses Atrial flutter with rapid ventricular response I48.92 Right ventricular dysfunction I51.9 Snoring R06.83 Bilateral hand numbness R20.0
--- NOTE | 2025-03-25 11:49 | Electrocardiogram Report ---
Test Reason : Blood Pressure : */* mmHG Vent. Rate : 73 BPM Atrial Rate : 73 BPM P-R Int : 148 ms QRS Dur : 74 ms QT Int : 382 ms P-R-T Axes : 81 98 56 degrees QTcB Int : 420 ms Sinus rhythm with marked sinus arrhythmia Rightward axis Abnormal ECG When compared with ECG of 21-Mar-2025 17:11, Sinus rhythm has replaced Atrial flutter Minimal criteria for Inferior infarct are no longer Present T wave inversion no longer evident in Inferior leads Nonspecific T wave abnormality has replaced inverted T waves in Anterior leads Confirmed by Bill Szymanski ([id number]) on 03/25/2025 11:48:29 AM Referred By: REFERRED SELF Confirmed By: Bill Szymanski
== END 2025-03-24 17:57 | disposition home or self-care (01) | DRG 310 ==
LOC: 2N 14:31 → ED 14:31 → SUATTDRO 19:34 → 2N 22:11

== ENCOUNTER 2025-04-17 16:51 | Inpatient (IN) ==
--- NOTE | 2025-04-17 17:20 | Emergency Department Note ---
Impression & Plan Atrial flutter with rapid ventricular response ED Provider Note NAME: ERICA GILBERT AGE: 75 SEX: Female INFORMANT: Patient ED PROVIDER(S): Masoud Barr MD CHIEF COMPLAINT: Palpitations PLAN: Disposition: Admitted Outpatient prescription management: none Referral: None MEDICAL DECISION MAKING: Patient presented because of palpitations. ECG revealed rapid a flutter. Patient had an IV established. Blood work obtained. CBC and chemistry panels were unremarkable. Patient is currently on Eliquis. Patient was started on a Cardizem drip. Patient was monitored. Flutter continued despite titration of the diltiazem drip. Patient was doing well on multiple reassessments. Further evaluation and management in the hospital will be necessary. Patient and family in agreement. Consultation was made with Dr. Dylan Millan of the [facility] service. Patient was evaluated in the ER for further management. 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 Vital Signs: reviewed and remarkable for tachycardia Additional History obtained from: Family Chronic Medical/Social Conditions affecting care: Anticoagulation Prior/ Outside/ External records reviewed: DC summary and hospital admission records reviewed from last month. Patient had cardioversion on 03/24. Differential Diagnosis: Premature contractions, electrolyte abnormality, cardiac dysrhythmia, thyroid dysfunction, pulmonary embolism, infection, gastrointestinal, as well as other pathologies. Diagnostics, independently interpreted by me: ECG: Twelve-lead ECG reveals atrial flutter at [address] abnormality. No ST elevation. Cardiac Monitoring: Cardiac monitoring ordered by me: The patient was placed on continuous cardiac monitoring and observed. It revealed a atrial flutter at 125 bpm. Medical decision rules: none Imaging studies: Chest x-ray. Findings: A chest x-ray was performed and revealed no pneumothorax, effusion, infiltrate, pulmonary edema, free air under the diaphragm, or wide mediastinum. Impression: No acute disease. HPI: 75 year old Female arrives for evaluation of palpitations. This started today a few hrs ago and is persisting. The patient also notes the following associated symptoms, pounding chest. The patient has taken no medication for relieving factors. Current pain is rated as 0/10. Pt denies LOC, headache, fevers, chills, diaphoresis, visual changes, neck pain, chest pain, breathing difficulties, nausea, vomiting, abdominal pain, back pain, melena, hematochezia, urinary symptoms, numbness, weakness, lymphadenopathy, rash, or other complaints. PAST MEDICAL HISTORY: See Below, aflutter PAST SURGICAL HISTORY: See Below, SOCIAL HISTORY: See Below, non smoker HOME MEDICATIONS: See Below ALLERGIES: See Below VITALS: See Below PHYSICAL EXAMINATION: GENERAL: Awake, alert, well-appearing, in no distress HENT: Normocephalic, atraumatic. Oropharynx unremarkable. EYES: Normal conjunctiva. Sclera non-icteric. NECK: Inspection normal. Non-tender. Supple. No nuchal rigidity. FROM. No masses. RESPIRATORY: Clear to auscultation. No wheezes. No rales. Normal respiratory effort. CARDIAC: Tachycardic rate. regular rhythm. No murmurs. No rubs. Extremities warm and well perfused. Pulses equal. No JVD. GI: Soft, non-distended. No tenderness to palpation. No rebound or guarding. No masses. RECTAL: Deferred. MUSCULOSKELETAL: Atraumatic. Chest examination reveals no tenderness. The back is symmetrical on inspection without obvious abnormality. There is no CVA tenderness to palpation. No joint edema. LOWER EXTREMITIES: Calves are equal size bilaterally and non-tender. No edema. No discoloration. NEURO: Normal sensorium. No sensory or motor deficits noted. SKIN: No rash or jaundice noted. PROCEDURES: none CRITICAL CARE: I have personally spent 30 minutes of critical care time in the direct management of this patient. This includes bedside care, interpretation of diagnostic studies, and testing, discussion with consultants, patient, and family members, and other required patient management activities. These minutes are in excess of all separately billable procedures. OBSERVATION NOTE: none Past Med/Surg History Problem List (Updated 04/18/25 @ 12:34 by Torsten Lopez MD) Hypotension (arterial) Bilateral hand numbness Snoring Right ventricular dysfunction Palpitations (Acute) Atrial flutter with rapid ventricular response (Acute) New onset atrial flutter (Acute) Gallbladder polyp Medical History Atrial flutter Squamous cell skin cancer Hyperbilirubinemia Surgical History Hx of cataract surgery Status post left breast lumpectomy Hx of colonoscopy Family History Brother Cancer Diabetes Father Diabetes Mother Hypertension Social History Smoking Status: Never smoker Second Hand Exposure: No; Do You Dip or Chew Tobacco: No; Hx Alcohol Use: Yes Alcohol type: wine Alcohol Intake Frequency: Monthly or Less Hx Substance Use: No Preferred Language: Slovak Communication Ability: 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 Required: No Beliefs That Will Affect Care: None marital status: Current Living Situation: Spouse current occupational status: unemployed How many Children do You have: 3 Feels Safe at Home: Yes Safety Concerns: Feels Safe At This Time Diet: regular during the past year weight has: remained stable Assistive Devices: Glasses Allergies Allergies Allergy/AdvReac Type Severity Reaction Status Date / Time amoxicillin Allergy Intermediate RASH Verified 03/24/25 07:24 ciprofloxacin [Cipro] Allergy Intermediate RASH Verified 03/24/25 07:24 nitrofurantoin Allergy Intermediate GI UPSET Verified 03/24/25 07:24 Sulfa (Sulfonamide Allergy Unknown CAN'T Verified 03/24/25 07:24 Antibiotics) REMEMBER Penicillins AdvReac Unknown TAKES Verified 03/24/25 07:24 AMOXIL NO OCCASSION--NO PROBS Home Meds Home Medications Medication Instructions Recorded Confirmed calcium 600 mg (as 1 cap PO DAILY 08/30/24 04/17/25 carbonate)-vitamin D3 10 mcg (400 unit) capsule cholecalciferol (vitamin D3) 50 50 mcg PO Q OTHER DAY 08/30/24 04/17/25 mcg (2,000 unit) capsule Previous Rx's Medication Instructions Recorded apixaban 5 mg tablet (Eliquis) 5 mg PO BID #60 tabs 03/24/25 Results & Data (ED) Vital Signs Vital Signs - 24 hr 04/17/25 16:55 04/17/25 17:14 04/17/25 17:16 Temperature 36.6 C Temperature Source Temporal Artery Scan Pulse Rate 126 H Pulse Rate [Finger] 122 H Respiratory Rate 18 20 Respiratory Effort / Characteristics Non-Labored Spontaneous Respiratory Depth Normal Blood Pressure 137/92 Blood Pressure [Right Arm] 140/107 H Blood Pressure Mean 107 Blood Pressure Mean [Right Arm] 118 Pulse Oximetry 98 97 98 Oxygen Delivery Method Room Air Room Air Room Air Sepsis Recent Fever Within 48 Hours No Sepsis New/Unexplained Change in Mental Status No Sepsis Action Taken by Nursing No Action Required 04/17/25 17:35 04/17/25 17:46 04/17/25 19:04 Temperature Temperature Source Pulse Rate 123 H Pulse Rate [Finger] 144 H 125 H Respiratory Rate 20 20 Respiratory Effort / Characteristics Respiratory Depth Blood Pressure Blood Pressure [Right Arm] 119/97 130/85 Blood Pressure Mean Blood Pressure Mean [Right Arm] 104 100 Pulse Oximetry 97 97 Oxygen Delivery Method Room Air Room Air Sepsis Recent Fever Within 48 Hours Sepsis New/Unexplained Change in Mental Status Sepsis Action Taken by Nursing Laboratory Data 04/18/25 06:10 04/18/25 06:10 Lab Results 04/17/25 Range/Units 17:05 WBC 5.53 (4.8-10.8) K/ul RBC 5.08 (4.20-5.40) M/uL Hgb 14.8 (12.0-16.0) g/dl Hct 46.0 (37.0-47.0) % MCV 90.6 (80.0-100.0) fL MCH 29.1 (25.0-34.0) pg MCHC 32.2 (32.0-36.0) g/dL RDW Std Deviation 45.5 (36.4-46.3) fL RDW Coeff of Chaya 13.5 (11.5-14.5) % Plt Count 240 (130-400) K/uL MPV 9.7 (9.4-12.4) fL Immature Gran % (Auto) 0.2 % Neut % (Auto) 67.8 % Lymph % (Auto) 21.9 % [place] % (Auto) 8.3 % Eos % (Auto) 1.3 % Baso % (Auto) 0.5 % Neut # (Auto) 3.75 (1.40-6.50) K/uL Lymph # (Auto) 1.21 (1.20-3.40) K/uL [place] # (Auto) 0.46 (0.11-0.59) K/uL Eos # (Auto) 0.07 (0.00-0.50) K/uL Baso # (Auto) 0.03 (0.00-0.20) K/uL Immature Gran # (Auto) 0.01 (0.01-0.20) K/uL PT 11.4 (9.0-12.0) Seconds INR 1.1 (0.9-1.1) APTT 30 (21-31) Seconds PTT Ratio 1.1 Sodium 138 (136-145) mmol/L Potassium 3.9 (3.5-5.1) mmol/L Chloride 102 (98-107) mmol/L Carbon Dioxide 29 (21-32) mmol/L Anion Gap 7 (3-11) BUN 16 (6-23) mg/dl Creatinine 0.87 (0.6-1.2) mg/dl Est Cr Clr Drug Dosing 43.1 ml/min eGFR 69.01 BUN/Creatinine Ratio 18.4 (10-20) Glucose 90 (70-99(Fasting)) mg/dl Calcium 9.8 (8.6-10.3) mg/dl Magnesium 2.1 (1.7-2.4) mg/dl Total Bilirubin 1.4 H (0.2-1.0) mg/dl AST 22 (13-39) U/L ALT 15 (7-52) U/L Alkaline Phosphatase 54 (34-104) U/L Troponin I High Sens 6.2 (0-14) pg/ml Total Protein 7.6 (6.0-8.3) gm/dl Albumin 4.5 (3.4-5.0) gm/dl Globulin 3.1 (2.5-4.0) gm/dl Albumin/Globulin Ratio 1.5 (0.9-2) Administered Medications Apixaban (Apixaban 5 Mg Tablet) 5 mg PO BID [facility] Stop: 05/17/25 20:59 Last Admin: 04/18/25 08:33 Dose: 5 mg Documented By: Admin: 04/17/25 21:16 Dose: 5 mg Documented By: QUINTIN Dronedarone (Dronedarone Hcl 400 Mg Tab) 400 mg PO BID [facility] Stop: 05/18/25 12:59 Last Admin: 04/18/25 13:03 Dose: 400 mg Documented By: MIKHAIL Magnesium Sulfate/Dextrose (Magnesium Sulfate / D5w) 1 gm in 100 mls @ 50 mls/hr IV Q2H [facility] Stop: 04/18/25 20:14 Last Admin: 04/18/25 15:00 Dose: 50 mls/hr Documented By: MIKHAIL Discontinued Medications Diltiazem HCl (Diltiazem Hcl 5 Mg/Ml 5 Ml Vial) 10 mg IV NOW STA Stop: 04/17/25 17:24 Last Admin: 04/17/25 17:30 Dose: 10 mg Documented By: ANNE Co-signed By: XIOMARA Diltiazem HCl 125 mg/ Dextrose 125 mls @ 10 mls/hr IV .[id number] ZO; Protocol Stop: 05/17/25 17:29 Last Titration: 04/18/25 04:27 Dose: Infused Documented By: QUINTIN Co-signed By: RON Titration: 04/17/25 18:35 Dose: 10 mg/hr, 10 mls/hr Documented By: ANNE Co-signed By: MANDO Admin: 04/17/25 17:56 Dose: 5 mg/hr, 5 mls/hr Documented By: ANNE Co-signed By: MANDO Sodium Chloride (Nss) 1,000 mls @ 80 mls/hr IV .[id number] ZO Stop: 04/20/25 17:29 Last Infusion: 04/17/25 21:18 Dose: Infused Documented By: Admin: 04/17/25 17:31 Dose: 80 mls/hr Documented By: ANNE Sodium Chloride (Nss) 1,000 mls @ 999 mls/hr IV .[id number] ZO Stop: 04/18/25 06:00 Last Admin: 04/18/25 05:00 Dose: Not Given Documented By: Infusion: 04/18/25 05:00 Dose: Infused Documented By: Admin: 04/18/25 04:11 Dose: 999 mls/hr Documented By: QUINTIN Calcium Gluconate () 1,000 mg in 60 mls @ 240 mls/hr IV NOW STA Stop: 04/18/25 04:18 Last Infusion: 04/18/25 04:45 Dose: Infused Documented By: Admin: 04/18/25 04:27 Dose: 240 mls/hr Documented By: QUINTIN Miscellaneous (Stat Iv Infusion Titration Per Protocol) 1 each N/A NOW STA Stop: 04/17/25 17:24 Last Admin: 04/17/25 17:28 Dose: Not Given Documented By: ANNE Ondansetron HCl (Ondansetron Inj 2 Mg/Ml 2 Ml Vial) 4 mg IV NOW STA Stop: 04/18/25 03:56 Last Admin: 04/18/25 04:10 Dose: 4 mg Documented By: QUINTIN Ondansetron HCl (Ondansetron Inj 2 Mg/Ml 2 Ml Vial) Confirm Administered Dose 4 mg .ROUTE .STK-MED ONE Stop: 04/18/25 03:59 Last Admin: 04/18/25 04:11 Dose: 4 mg Documented By: QUINTIN Discharge Plan Visit Data Chief Complaint: Arrhythmia/Palpitations Stated Complaint: HIGH HEART RATE ED Provider: Masoud Barr Discharge Problem: Atrial flutter with rapid ventricular response Patient Disposition: Admitted As Inpatient Condition: Fair Discharge Instructions Interventions: ED Discharge Assessment Last Done: 04/17/25 20:05
[2025-04-17 17:22] LABS: Hematocrit (blood only) 46.0 % (37.0-47.0); Hemoglobin 14.8 g/dl (12.0-16.0); Immature Granulocytes # (auto) 0.01 K/uL (0.01-0.20); Immature Granulocytes % (auto) 0.2 %; Mean Corpuscular Hemoglobin 29.1 pg (25.0-34.0); Mean Corpuscular Volume 90.6 fL (80.0-100.0); Platelet Count 240 K/uL (130-400); RDW Standard Deviation 45.5 fL (36.4-46.3); Red Blood Count 5.08 M/uL (4.20-5.40); White Blood Count 5.53 K/ul (4.8-10.8)
[2025-04-17] MEDS: STAT IV Infusion **Titration per Protocol STA (17:28)
[2025-04-17] MEDS: SODIUM CHLORIDE 0.9% 1,000 ML IV SCH (17:31)
--- NOTE | 2025-04-17 17:41 | XRay Report ---
EXAM: X-ray chest one-view not portable CLINICAL HISTORY: Chest pain PRIORS: 03/21/2025 TECHNIQUE: Frontal view chest FINDINGS: Chest is hyperexpanded with features favoring pulmonary emphysema. No airspace consolidation, effusion or congestive changes. Heart size is normal. No pneumothorax. Trachea is patent. Osseous structures demonstrate no acute abnormality. No radiopaque foreign body. IMPRESSION: No plain film evidence of an acute cardiopulmonary process. Electronically signed by Melissa Ahuja 04-17-2025 5:41 PM
[2025-04-17 17:43] LABS: Alanine Aminotransferase 15.0 U/L (7-52); Albumin Globulin Ratio 1.5 (0.9-2); Alkaline Phosphatase 54.0 U/L (34-104); Anion Gap 7.0 (3-11); Bilirubin,Total 1.4 mg/dl (0.2-1.0); Blood Urea Nitrogen 16.0 mg/dl (6-23); Calcium 9.8 mg/dl (8.6-10.3); Carbon Dioxide 29.0 mmol/L (21-32); Chloride 102.0 mmol/L (98-107); Creatinine Clr Calc Pharmacy 43.1 ml/min; Globulin 3.1 gm/dl (2.5-4.0); Glucose 90.0 mg/dl (70-99(Fasting)); Magnesium 2.1 mg/dl (1.7-2.4); Potassium 3.9 mmol/L (3.5-5.1); Sodium 138.0 mmol/L (136-145); Total Protein 7.6 gm/dl (6.0-8.3)
[2025-04-17 18:11] LABS: INR 1.1 (0.9-1.1); Partial Thromboplastin Time 30 Seconds (21-31); Prothrombin Time 11.4 Seconds (9.0-12.0)
--- NOTE | 2025-04-17 19:27 | History & Physical Report ---
Date of Service April 17, 2025 Assessment & Plan (1) Atrial flutter with rapid ventricular response: Plan: 75yo F who presents with recurrent aflutter RVR. No other significant medical hx, takes no medications other than eliquis for stroke ppx. Atrial flutter Discharged 03/24/2025 after an admission for atrial flutter s/p MCKENZIE followed by electrical cardioversion 03/24/2025 with return to sinus Patient has been continued on Eliquis since discharge 03/24/2025 Presents back in atrial flutter. Abrupt onset of symptoms shortly after lunch 04/17. She ate slightly before being seen Is not on any rate/rhythm control agents at baseline, MTP was discontinued. She is pending ablation as outpatient Will continue Cardizem gtt. on admission. Cardiology consulted --> eval for repeat cardioversion 04/18. She has been consistently anticoagulated and has not missed any doses of her Eliquis in the previous month She is not hemodynamically unstable. Last EF borderline reduced. She has no chest pain/chest pressure on admission. - If inadequate rate control/borderline hypotension w/ dilt gtt --> switch to amio. If hemodynamically unstable --> cardiovert DVT prophylaxis: Anticoagulated Diet: N.p.o. midnight for cardioversion evaluation Disposition: PCU CODE STATUS: Full code History of Present Illness Primary Care Provider: Lia Corrigan MD Josy is a 75-year-old female with a history of atrial flutter with RVR recently started on Eliquis, right heart systolic dysfunction, thyroid nodules who presents with palpitations. Palpitations started several hours prior to admission, has no associated chest pain or shortness of breath. On arrival to the ER is found to be in a flutter 2-1 conduction. Presents with palpitations and gave admission. Recurrent similar to prior month Was recently admitted for atrial flutter and underwent a successful cardioversion. [place] well until her heart started racing again today. Was shortly after lunch 'was just putzing around' and then her heart abruptly started racing. No chest pain, pressure, or dyspnea. Notices she is more tired going up stairs this afternoon 'Feels the heartbeat in her head' but denies headache No lightheadedenss Has been taking eliquis consistently the last month, took last dose this morning at 7am. Is pending an outpatient ablation in the future Denies fever chills sweats cough abdominal pain nausea/vomiting. No sick symptoms. She is not sure what set off her atrial flutter. Medical History: Reviewed Medications: Reviewed Surgical History: Reviewed Family history: Reviewed Allergies: Reviewed Social History: No tobacco use. rare social etoh use. Code Status: Full Code Allergies Allergy/AdvReac Type Severity Reaction Status Date / Time amoxicillin Allergy Intermediate RASH Verified 03/24/25 07:24 ciprofloxacin [Cipro] Allergy Intermediate RASH Verified 03/24/25 07:24 nitrofurantoin Allergy Intermediate GI UPSET Verified 03/24/25 07:24 Sulfa (Sulfonamide Allergy Unknown CAN'T Verified 03/24/25 07:24 Antibiotics) REMEMBER Penicillins AdvReac Unknown TAKES Verified 03/24/25 07:24 AMOXIL NO OCCASSION--NO PROBS Home Medications Medication Instructions Recorded Confirmed Type calcium 600 mg (as 1 cap PO DAILY 08/30/24 04/17/25 History carbonate)-vitamin D3 10 mcg (400 unit) capsule cholecalciferol (vitamin D3) 50 50 mcg PO Q OTHER DAY 08/30/24 04/17/25 History mcg (2,000 unit) capsule apixaban 5 mg tablet (Eliquis) 5 mg PO BID #60 tabs 03/24/25 04/17/25 Rx Past Med/Surg History Problem List (Updated 04/17/25 @ 17:20 by Masoud Barr MD) Bilateral hand numbness Snoring Right ventricular dysfunction Palpitations (Acute) Atrial flutter with rapid ventricular response (Acute) New onset atrial flutter (Acute) Gallbladder polyp Medical History Squamous cell skin cancer Hyperbilirubinemia Surgical History Hx of cataract surgery Status post left breast lumpectomy Hx of colonoscopy Family History Brother Cancer Diabetes Father Diabetes Mother Hypertension Social History Smoking Status: Never smoker Second Hand Exposure: No; Do You Dip or Chew Tobacco: No; Hx Alcohol Use: Yes Alcohol type: wine Alcohol Intake Frequency: Monthly or Less Hx Substance Use: No Preferred Language: Yemeni Communication Ability: Effective Power Originator Required: No Beliefs That Will Affect Care: None marital status: Current Living Situation: Spouse current occupational status: unemployed How many Children do You have: 3 Feels Safe at Home: Yes Diet: regular during the past year weight has: remained stable Assistive Devices: None Physical Exam Physical Exam: General: A&Ox3. NAD. Cooperative. HEENT: Atraumatic, normocephalic. Vision/hearing intact. PERLAA Pulm: CTAB A&P. -wheezes, -rales, -rhonchi. Symmetrical chest rise. No increased work of breathing. No respiratory distress. Cardiac: irir, -mrg. Radial pulses intact and symmetrical. Ext: warm, dry. moves all extremities equally Results & Data Results & Data Vital Signs (Past 12 Hours) Vital Signs Temp Pulse Pulse Resp BP BP Pulse Ox 04/17/25 19:04 125 H 20 130/85 97 04/17/25 17:46 123 H 04/17/25 17:35 144 H 20 119/97 97 04/17/25 17:16 122 H 20 140/107 H 98 04/17/25 17:14 97 04/17/25 16:55 36.6 C 126 H 18 137/92 98 O2 Del Method 04/17/25 19:04 Room Air 04/17/25 17:46 04/17/25 17:35 Room Air 04/17/25 17:16 Room Air 04/17/25 17:14 Room Air 04/17/25 16:55 Room Air PG Care Time/CCT Total # of Minutes Spent Total Time Spent with Patient: Total time spent is greater than 50% in coordination of care (as documented) at patient's floor/unit and/or counseling patient: Coding Level of Care Code 67671 INT INP/OBS CARE 3/75MIN Diagnoses Atrial flutter with rapid ventricular response I48.92
[2025-04-17] MEDS ORDERED: ACETAMINOPHEN 325 MG TAB PO PRN (20:40)
[2025-04-17] MEDS: APIXABAN 5 MG TABLET PO SCH (21:16)
[2025-04-18] MEDS ORDERED: ONDANSETRON INJ 2 MG/ML 2 ML VIAL IV PRN (03:56)
[2025-04-18] MEDS: ONDANSETRON INJ 2 MG/ML 2 ML VIAL IV STA (04:10)
[2025-04-18] MEDS: ONDANSETRON INJ 2 MG/ML 2 ML VIAL ONE (04:11)
[2025-04-18] MEDS: SODIUM CHLORIDE 0.9% 1,000 ML IV SCH (04:11)
[2025-04-18] MEDS: CALCIUM GLUCONATE 1,000 MG/60 ML BAG IV STA (04:27)
[2025-04-18 07:15] LABS: Hematocrit (blood only) 41.6 % (37.0-47.0); Hemoglobin 13.8 g/dl (12.0-16.0); Immature Granulocytes # (auto) 0.00 K/uL (0.01-0.20); Immature Granulocytes % (auto) 0.0 %; Mean Corpuscular Hemoglobin 30.1 pg (25.0-34.0); Mean Corpuscular Volume 90.6 fL (80.0-100.0); Platelet Count 209 K/uL (130-400); RDW Standard Deviation 45.1 fL (36.4-46.3); Red Blood Count 4.59 M/uL (4.20-5.40); White Blood Count 5.71 K/ul (4.8-10.8)
[2025-04-18 07:38] LABS: Anion Gap 4.0 (3-11); Blood Urea Nitrogen 11.0 mg/dl (6-23); Calcium 8.7 mg/dl (8.6-10.3); Carbon Dioxide 29.0 mmol/L (21-32); Chloride 106.0 mmol/L (98-107); Creatinine Clr Calc Pharmacy 45.4 ml/min; Glucose 92.0 mg/dl (70-99(Fasting)); Potassium 3.9 mmol/L (3.5-5.1); Sodium 139.0 mmol/L (136-145)
--- NOTE | 2025-04-18 08:17 | Hospitalist Progress Note ---
Date of Service April 18, 2025 Assessment & Plan (1) Atrial flutter with rapid ventricular response: Plan: Josy is a 75yo F with no significant PMHx who presents with recurrent aflutter w/ RVR. She takes no regular medications other than Eliquis for stroke ppx. She was admitted for cardiology eval, potential repeat cardioversion. She will be safe for discharge when appropriate medication regimen is established, and will follow up with cardiology for ablation. Recurrent atrial flutter Discharged 03/24/2025 after an admission for atrial flutter s/p MCKENZIE followed by electrical cardioversion 03/24/2025 with return to sinus Has been on Eliquis since discharge on 03/24. Reports strict adherence. Not on any rate- or rhythm-control medications Abrupt onset of sx shortly after lunch on 04/17. [place] palpitations. Was able to eat her meal, no n/v. No chest pain or dyspnea. Placed on Cardizem gtt. on admission. Discontinued overnight d/t symptomatic hypotension, which corrected with IVF bolus. Has since been hemodynamically stable Recent echo showed borderline-reduced LV systolic function with EF 50-55%, no structural or valvular abnormalities Cardiology consulted, appreciated input ?Eval for repeat cardioversion 04/18 Started on Multaq. Consider beta blockade if she remains tachycardic and in a-flutter Pending ablation as outpatient procedure for definitive treatment DVT prophylaxis: continue eliquis Diet: regular Disposition: PCU CODE STATUS: Full code Admission and Anticipated Discharge Date Admission Date: April 17, 2025 Supervising Physician Co-Signing Physician Notes I personally examined the patient and verified all braun points of history and exam, discussed case, and agree with decision making with Dr Hunter feeling ok. no chest sx. no lightheadedness. did get bad calf cramps overnight and earlier vitals noted nad heent nc at mmm tachycardic breathing unlabored no accessory muscles good effort skin no rashes no pallor or icterus neuro no focal deficits aflutter/RVR - greatly appreciate cardiology input. rhythm plan per their guidance. fluid bolus if needed for BP, cardioversion emergently if she were to at all become unstable leg cramps - IV mag anticoagulated otherwise as above Subjective Patient seen and examined at bedside. Did have some lightheadedness and low BP overnight ~4am. Discontinued cardizem gtt, given nss bolus, BP and sx improved. Feeling well overall this morning. Denies MATHEWS, CP, SOB, palpitations, lightheadedness. Very agreeable and open to whatever plan our team + cardiology determine is best. Review of Systems Review of Systems: As per HPI. Physical Exam Physical Exam: Gen: Very pleasant, well-appearing, NAD HEENT: NCAT, normal conjunctiva, anicteric sclera, MMM CV: Tachycardic, no m/r/g appreciated, no LE edema Resp: CTAB, symmetrical chest rise, breathing non-labored Abd: Soft, NT/ND, +BS, no HSM MSK: Full ROM, no gross deformities on inspection Skin: Warm, dry, well-perfused, no rashes appreciated Neuro: AOx3, CN II-XII grossly intact, no focal deficits Psych: Full, euthymic affect. Speech pace normal. Thoughts linear and goal- directed. Results & Data Results & Data Vital Signs (Past 12 Hours) Vital Signs Temp Pulse Pulse Resp BP Pulse Ox O2 Del Method 04/18/25 07:07 36.4 C L 126 H 18 98/65 L 98 Room Air 04/18/25 06:57 62 04/18/25 06:23 98/62 L 04/18/25 04:54 52 L 18 99/58 L 98 Room Air 04/18/25 04:45 55/36 L 04/18/25 00:13 36.4 C L 79 18 96/62 L 97 Room Air 04/17/25 20:20 36.6 C 125 H 18 124/74 96 Room Air Resident Activity Tracking Resident Involvement: Resident Care Provided Care Provided: Adult Hospital Medicine
--- NOTE | 2025-04-18 11:48 | Cardiology Consultation ---
Date of Consultation April 18, 2025 Assessment & Plan (1) Atrial flutter: (2) Right ventricular dysfunction: (3) Hypotension (arterial): Plan 1. Atrial flutter: She has now had recurrence of her atrial fibrillation just over 3 weeks following cardioversion on no antiarrhythmic medications. That was a reasonable approach as the chronicity of the arrhythmia was uncertain. Now she presents with what appears to be an identical rhythm which appears to be typical atrial flutter but at a somewhat slower atrial rate than usual. Still it would probably be amenable to ablation and that would be my recommendation as a permanent solution. In the meantime we can try antiarrhythmic therapy and rate control. With her hypotension on intravenous diltiazem (and even now her blood pressure is low although she feels well) I am not going to add rate control medications currently. I am going to start Multaq due to her possible left ventricular dysfunction, this evening if her heart rate remains fast and she remains in atrial flutter I will add low-dose beta-blockade. 2. Right ventricular dysfunction: This was identified in March on her echocardiogram. She does not have symptoms of pulmonary disease. Emphysema reported on her chest x-ray, but again no pulmonary symptoms. We will get a better assessment with a subsequent echocardiogram when she is returned to a normal rhythm. Her right ventricular abnormality may explain her slow flutter rate. No evidence of decompensated right ventricular failure. 3. Hypotension: She tends to be hypotensive although does have a labile blood pressure. Some of this could be volume dependent, with decreased right ventricular function she may be more dependent on volume so I would be careful not to keep her fluid depleted. This may limit our ability to use rate controlling medications. History of Present Illness Reason for Consultation: Palpitations, recurrent atrial flutter Attending Physician: Almas Tee DO History of Present Illness This is a 75-year-old woman who presented to the hospital March 22, 2025 due to concerns over an elevated heart rate and palpitations. [place]. She stated for a few months she had been noticing palpitation, she described a feeling that her heart rate is fast at times. She was otherwise feeling well and had able to maintain a good level of activity. She specifically denied symptoms such as chest discomfort or dyspnea, dizziness or lightheadedness. She was seen in the outpatient setting in January and February for presumed urinary tract infection. On both occasions her heart rate was noted to be elevated but the narrative suggested that her rhythm was regular and her heart rate was normal. She also reports having undergone a colonoscopy before that and was told that her heart rate was elevated and that she should "get it checked out". On initial evaluation here she was noted to be in an atrial flutter with variable AV conduction. An echocardiogram done March 22, 2025 noted rapid atrial flutter, the left ventricular systolic function was reportedly borderline reduced with moderate right ventricular systolic dysfunction as well. The right atrium was severely dilated and the right ventricular systolic pressure was elevated at 30 to 40 mmHg and the inferior vena cava was moderately dilated. Electrocardiography shows typical atrial flutter on presentation. The duration of the flutter was not noted but felt to be weeks to months in duration. She was started on Eliquis and due to difficulty controlling the heart rate a MCKENZIE was performed March 24, 2025 where no left atrial thrombus was identified and cardioversion was performed that day. A post cardioversion electrocardiogram shows sinus rhythm at 73 bpm that day. She was maintained on Eliquis following cardioversion. It appears she was not discharged on any rate control medications. She was discharged for outpatient follow-up on March 24, 2025 but developed recurrent palpitations on the afternoon of April 17, 2025 and presented to the emergency room. two closely spaced electrocardiograms show what appears to be typical atrial flutter with 2-1 AV conduction with a ventricular rate of 125 bpm. The atrial rate is a little bit slow for flutter but the morphology is classic for typical isthmus dependent atrial flutter, the rate may indicate an atrial abnormality causing slow conduction. Allergies Allergy/AdvReac Type Severity Reaction Status Date / Time amoxicillin Allergy Intermediate RASH Verified 03/24/25 07:24 ciprofloxacin [Cipro] Allergy Intermediate RASH Verified 03/24/25 07:24 nitrofurantoin Allergy Intermediate GI UPSET Verified 03/24/25 07:24 Sulfa (Sulfonamide Allergy Unknown CAN'T Verified 03/24/25 07:24 Antibiotics) REMEMBER Penicillins AdvReac Unknown TAKES Verified 03/24/25 07:24 AMOXIL NO OCCASSION--NO PROBS Home Medications Medication Instructions Recorded Confirmed Type calcium 600 mg (as 1 cap PO DAILY 08/30/24 04/17/25 History carbonate)-vitamin D3 10 mcg (400 unit) capsule cholecalciferol (vitamin D3) 50 50 mcg PO Q OTHER DAY 08/30/24 04/17/25 History mcg (2,000 unit) capsule apixaban 5 mg tablet (Eliquis) 5 mg PO BID #60 tabs 03/24/25 04/17/25 Rx Patient History Medical History Atrial flutter Squamous cell skin cancer Hyperbilirubinemia Surgical History Hx of cataract surgery Status post left breast lumpectomy Hx of colonoscopy Family History Brother Cancer Diabetes Father Diabetes Mother Hypertension Social History Smoking Status: Never smoker Second Hand Exposure: No; Do You Dip or Chew Tobacco: No; Hx Alcohol Use: Yes Alcohol type: wine Alcohol Intake Frequency: Monthly or Less Hx Substance Use: No Preferred Language: Sinhala Communication Ability: Effective 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 HEENT: Unremarkable Neck: No jugular venous distention, carotid pulses are normal and equal bilaterally without bruits. Pulmonary: Clear to auscultation bilaterally. Cardiac: Regular rhythm with no murmur, gallop or rub. Abdomen: Soft, nontender with normal bowel sounds. Extremities: No edema. Distal pulses intact. Neurologic: No focal findings. Gait is steady. Skin: No rash, ecchymoses or petechiae. Results & Data Vital Signs (Past 12 Hours) Vital Signs Temp Pulse Pulse Resp BP Pulse Ox O2 Del Method 04/18/25 07:07 36.4 C L 126 H 18 98/65 L 98 Room Air 04/18/25 06:57 62 04/18/25 06:23 98/62 L 04/18/25 04:54 52 L 18 99/58 L 98 Room Air 04/18/25 04:45 55/36 L 04/18/25 00:13 36.4 C L 79 18 96/62 L 97 Room Air Laboratory Results Cardiac Enzymes 04/17/25 Range/Units 17:05 AST 22 (13-39) U/L Troponin I High Sens 6.2 (0-14) pg/ml Coagulation 04/17/25 Range/Units 17:05 PT 11.4 (9.0-12.0) Seconds APTT 30 (21-31) Seconds CBC 04/17/25 04/18/25 Range/Units 17:05 06:10 WBC 5.53 5.71 (4.8-10.8) K/ul RBC 5.08 4.59 (4.20-5.40) M/uL Hgb 14.8 13.8 (12.0-16.0) g/dl Hct 46.0 41.6 (37.0-47.0) % Plt Count 240 209 (130-400) K/uL Neut # (Auto) 3.75 4.05 (1.40-6.50) K/uL Lymph # (Auto) 1.21 1.04 L (1.20-3.40) K/uL [place] # (Auto) 0.46 0.53 (0.11-0.59) K/uL Eos # (Auto) 0.07 0.07 (0.00-0.50) K/uL Baso # (Auto) 0.03 0.02 (0.00-0.20) K/uL Comprehensive Metabolic Panel 04/17/25 04/18/25 Range/Units 17:05 06:10 Sodium 138 139 (136-145) mmol/L Potassium 3.9 3.9 (3.5-5.1) mmol/L Chloride 102 106 (98-107) mmol/L Carbon Dioxide 29 29 (21-32) mmol/L BUN 16 11 (6-23) mg/dl Creatinine 0.87 0.80 (0.6-1.2) mg/dl Glucose 90 92 (70-99(Fasting)) mg/dl Calcium 9.8 8.7 (8.6-10.3) mg/dl AST 22 (13-39) U/L ALT 15 (7-52) U/L Alkaline Phosphatase 54 (34-104) U/L Total Protein 7.6 (6.0-8.3) gm/dl Albumin 4.5 (3.4-5.0) gm/dl Intake and Output 04/17/25 04/18/25 04/18/25 22:59 06:59 14:59 Intake Total 1123.25 / 2305.00 1181.75 / 2305.00 250 / 250 Balance 1123.25 / 2305.00 1181.75 / 2305.00 250 / 250 Intake: IV 1003.25 / 2185.00 1181.75 / 2185.00 Calcium Gluconate 1,000 mg In 60 / 60 60 ml @ 240 mls/hr IV NOW STA Rx#:[id number] Sodium Chloride 0.9% 1,000 ml @ 1000 / 2000 1000 / 2000 999 mls/hr IV .[id number] [facility] Rx#: [id number] dilTIAZem HCL 125 mg In 3.25 / 125.00 121.75 / 125.00 Dextrose 5% 100 ml @ 10 MG/HR 10 mls/hr IV .[id number] [facility] Rx#: [id number] Oral 120 / 120 250 / 250 Other: # Unmeasured Voids 1 2 Weight 48.1 kg 48.1 kg Weight Measurement Method Standing Scale Standing Scale Diagnostic Findings Telemetry: Initially on presentation 2-1 AV block, on intravenous diltiazem her heart rate was well-controlled, into the 60s, and with discontinuation of diltiazem she had recurrence of 2-1 AV conduction. PG Care Time/CCT Total # of Minutes Spent Total Time Spent with Patient: Total time spent is greater than 50% in coordination of care (as documented) at patient's floor/unit and/or counseling patient: Coding Level of Care Code 65586 INT INP/OBS CARE 3/75MIN Diagnoses Typical atrial flutter I48.3 Atrial flutter type: typical Right ventricular dysfunction I51.9 Hypotension (arterial) I95.9 (1) Atrial flutter Atrial flutter type: typical Qualified Code(s): I48.3 - Typical atrial flutter
[2025-04-18] MEDS: DRONEDARONE HCL 400 MG TAB PO SCH (13:03)
[2025-04-18] MEDS: MAGNESIUM SULFATE / D5W 1 GM/100 ML BAG IV SCH (15:00)
--- NOTE | 2025-04-18 15:24 | Billing Data ---
Date of Service April 18, 2025 Coding Level of Care Code 64281 SUB INP/OBS CARE
[2025-04-18] MEDS: METOPROLOL TARTRATE 25 MG TAB PO STA (19:38)
[2025-04-19 06:30] LABS: Hematocrit (blood only) 41.8 % (37.0-47.0); Hemoglobin 14.0 g/dl (12.0-16.0); Immature Granulocytes # (auto) 0.01 K/uL (0.01-0.20); Immature Granulocytes % (auto) 0.2 %; Mean Corpuscular Hemoglobin 29.9 pg (25.0-34.0); Mean Corpuscular Volume 89.1 fL (80.0-100.0); Platelet Count 199 K/uL (130-400); RDW Standard Deviation 44.5 fL (36.4-46.3); Red Blood Count 4.69 M/uL (4.20-5.40); White Blood Count 5.56 K/ul (4.8-10.8)
[2025-04-19 06:45] VITALS: RESP 16
[2025-04-19 06:47] LABS: Anion Gap 4.0 (3-11); Blood Urea Nitrogen 13.0 mg/dl (6-23); Calcium 8.2 mg/dl (8.6-10.3); Carbon Dioxide 26.0 mmol/L (21-32); Chloride 108.0 mmol/L (98-107); Creatinine Clr Calc Pharmacy 38.6 ml/min; Glucose 88.0 mg/dl (70-99(Fasting)); Potassium 4.1 mmol/L (3.5-5.1); Sodium 138.0 mmol/L (136-145)
--- NOTE | 2025-04-19 07:38 | Hospitalist Progress Note ---
Date of Service April 19, 2025 Assessment & Plan (1) Atrial flutter with rapid ventricular response: Plan: Josy is a 75yo F with no significant PMHx who presents with recurrent aflutter w/ RVR. She takes no regular medications other than Eliquis for stroke ppx. She was admitted for cardiology eval, potential repeat cardioversion. She will be safe for discharge when appropriate medication regimen is established, and will follow up with cardiology for ablation. Recurrent atrial flutter Discharged 03/24/2025 after an admission for atrial flutter s/p MCKENZIE followed by electrical cardioversion 03/24/2025 with return to sinus Has been on Eliquis since discharge on 03/24. Reports strict adherence. Not on any rate- or rhythm-control medications Abrupt onset of sx shortly after lunch on 04/17. [place] palpitations. Was able to eat her meal, no n/v. No chest pain or dyspnea. Cardizem caused hypotension Recent echo showed borderline-reduced LV systolic function with EF 50-55%, no structural or valvular abnormalities Cardiology consulted, appreciated input ?Eval for repeat cardioversion 04/18 Started on Multaq. Metoprolol tartrate 25mg TID Pending ablation as outpatient procedure for definitive treatment DVT prophylaxis: continue eliquis Diet: regular Disposition: PCU CODE STATUS: Full code Admission and Anticipated Discharge Date Admission Date: April 17, 2025 Subjective Patient seen and evaluated at bedside this morning. No acute events overnight. Remained in a flutter overnight - confirmed with telemetry administrative clerk. Slower rates overnight but back to 120s this morning. Overall, she feels fine. Concerned about return home due to stairs in her house and noticing symptoms when climbing stairs/exerting herself. No acute complaints this am Review of Systems Review of Systems: reviewed, per HPI Physical Exam Physical Exam: Constitutional: well-appearing, no acute distress HEENT: NCAT, no conjunctival injection CV: tachycardic, extremities well-perfused, no LE edema Resp: no increased work of breathing GI: nondistended MSK: no gross deformities appreciated Skin: warm, dry, no rash appreciated Neuro: alert, oriented, no focal neurologic deficit appreciated Results & Data Results & Data Vital Signs (Past 12 Hours) Vital Signs Temp Pulse Pulse Resp BP Pulse Ox Pulse Ox 04/19/25 06:58 64 04/19/25 03:46 36.5 C 51 L 16 97/64 L 96 04/18/25 23:46 36.5 C 67 18 110/71 96 04/18/25 20:40 96 O2 Del Method O2 Del Method 04/19/25 06:58 04/19/25 03:46 Room Air 04/18/25 23:46 Room Air 04/18/25 20:40 Room Air Resident Activity Tracking Resident Involvement: Resident Care Provided Care Provided: Adult Hospital Medicine
[2025-04-19] MEDS: METOPROLOL TARTRATE 25 MG TAB PO SCH (08:46)
[2025-04-19 11:18] VITALS: TEMP 97.7; O2SAT 99
--- NOTE | 2025-04-19 11:59 | Cardiology Progress Note ---
Date of Service April 19, 2025 Assessment & Plan (1) Atrial flutter: (2) Right ventricular dysfunction: (3) Hypotension (arterial): Plan 1. Atrial flutter: She has now had recurrence of her atrial fibrillation just over 3 weeks following cardioversion on no antiarrhythmic medications. Cardioversion was a reasonable approach as the chronicity of the arrhythmia was uncertain. Now she presents with what appears to be an identical rhythm which appears to be typical atrial flutter but at a somewhat slower atrial rate than usual. Still it would probably be amenable to ablation and that would be my recommendation as a permanent solution. In the meantime we can try antiarrh ythmic therapy and rate control. On metoprolol 25 mg TID her overall heart rate is better, she is still 2:1 when active but not at rest. Most of the time the heart rate is adequately controlled and not slow on this dose. I would recommend increasing to metoprolol tartrate 50 mg BID, I will give a 50 mg dose now (she is due for her 25 mg dose now), if she tolerates this well for 1-2 hours she could go home from my standpoint. The Multaq has not converted the rhythm, but that may take time of may require cardioversion. I will arrange followup in the office in 1-2 weeks to make that decision, as well as to arrange ablation. 2. Right ventricular dysfunction: This was identified in March on her echocardiogram. She does not have symptoms of pulmonary disease. Emphysema reported on her chest x-ray, but again no pulmonary symptoms. We will get a better assessment with a subsequent echocardiogram when she is returned to a normal rhythm. Her right ventricular abnormality may explain her slow flutter rate. No evidence of decompensated right ventricular failure. 3. Hypotension: She tends to be hypotensive although does have a labile blood pressure. Some of this could be volume dependent, with decreased right ventricular function she may be more dependent on volume so I would be careful not to keep her fluid depleted. This may limit our ability to use rate controlling medications but she is tolerating metoprolol tartrate 25 mg BID without dropping her blood pressure. Admission and Anticipated Discharge Date Admission Date: April 17, 2025 Subjective She is feeling better today, no lightheadedness, minimal palpitations. Tolerating meds well without side effects. Physical Exam Physical Exam: Constitutional: Alert, cooperative and in no distress. HEENT: Unremarkable Neck: No jugular venous distention, carotid pulses are normal and equal bilaterally without bruits. Pulmonary: Clear to auscultation bilaterally. Cardiac: Regular rhythm with no murmur, gallop or rub. Abdomen: Soft, nontender with normal bowel sounds. Extremities: No edema. Neurologic: No focal findings. Skin: No rash, ecchymoses or petechiae. Results & Data Vital Signs (Past 12 Hours) Vital Signs Temp Pulse Pulse Pulse Resp BP Pulse Ox 04/19/25 11:17 36.5 C 90 16 96/53 L 99 04/19/25 07:24 36.3 C L 86 16 110/75 98 04/19/25 06:58 64 04/19/25 03:46 36.5 C 51 L 16 97/64 L 96 O2 Del Method 04/19/25 11:17 Room Air 04/19/25 07:24 Room Air 04/19/25 06:58 04/19/25 03:46 Room Air Laboratory Results CBC 04/19/25 Range/Units 06:04 WBC 5.56 (4.8-10.8) K/ul RBC 4.69 (4.20-5.40) M/uL Hgb 14.0 (12.0-16.0) g/dl Hct 41.8 (37.0-47.0) % Plt Count 199 (130-400) K/uL Neut # (Auto) 3.54 (1.40-6.50) K/uL Lymph # (Auto) 1.31 (1.20-3.40) K/uL [place] # (Auto) 0.56 (0.11-0.59) K/uL Eos # (Auto) 0.12 (0.00-0.50) K/uL Baso # (Auto) 0.02 (0.00-0.20) K/uL Comprehensive Metabolic Panel 04/19/25 Range/Units 06:04 Sodium 138 (136-145) mmol/L Potassium 4.1 (3.5-5.1) mmol/L Chloride 108 H (98-107) mmol/L Carbon Dioxide 26 (21-32) mmol/L BUN 13 (6-23) mg/dl Creatinine 0.95 (0.6-1.2) mg/dl Glucose 88 (70-99(Fasting)) mg/dl Calcium 8.2 L (8.6-10.3) mg/dl Intake and Output 04/18/25 04/19/25 04/19/25 22:59 06:59 14:59 Intake Total 933.333 / 1303.333 120 / 1303.333 Balance 933.333 / 1303.333 120 / 1303.333 Intake: IV 283.333 / 283.333 Magnesium Sulfate / D5w 1 gm In 283.333 / 283.333 100 ml @ 50 mls/hr IV Q2H [facility] Rx#:[id number] Oral 650 / 1020 120 / 1020 Other: # Unmeasured Voids 2 2 Weight 48.5 kg Weight Measurement Method Built in [facility] Diagnostic Findings Telemetry: Still in flutter but now with a ore controlled heart rate, still 2:1 when active but better at other times ECG this PM: Atrial flutter with variable AV conduction, QT interval appears to be acceptable. PG Care Time/CCT Total # of Minutes Spent Total Time Spent with Patient: Total time spent is greater than 50% in coordination of care (as documented) at patient's floor/unit and/or counseling patient: Coding Level of Care Code 50071 SUB INP/OBS CARE 2/35MIN Diagnoses Typical atrial flutter I48.3 Atrial flutter type: typical Right ventricular dysfunction I51.9 Hypotension (arterial) I95.9 (1) Atrial flutter Atrial flutter type: typical Qualified Code(s): I48.3 - Typical atrial flutter
[2025-04-19] MEDS: METOPROLOL TARTRATE 50 MG TAB PO SCH (12:50)
[2025-04-19 13:35] VITALS: BP 94/63
--- NOTE | 2025-04-19 14:00 | Discharge Summary ---
Date of Service April 19, 2025 Admission HPI Per Admitting Provider Josy is a 75-year-old female with a history of atrial flutter with RVR recently started on Eliquis, right heart systolic dysfunction, thyroid nodules who presents with palpitations. Palpitations started several hours prior to admission, has no associated chest pain or shortness of breath. On arrival to the ER is found to be in a flutter 2-1 conduction. Presents with palpitations and gave admission. Recurrent similar to prior month Was recently admitted for atrial flutter and underwent a successful cardioversion. Olema well until her heart started racing again today. Was shortly after lunch 'was just putzing around' and then her heart abruptly started racing. No chest pain, pressure, or dyspnea. Notices she is more tired going up stairs this afternoon 'Feels the heartbeat in her head' but denies headache No lightheadedenss Has been taking eliquis consistently the last month, took last dose this morning at 7am. Is pending an outpatient ablation in the future Denies fever chills sweats cough abdominal pain nausea/vomiting. No sick symptoms. She is not sure what set off her atrial flutter. Medical History: Reviewed Medications: Reviewed Surgical History: Reviewed Family history: Reviewed Allergies: Reviewed Social History: No tobacco use. rare social etoh use. Code Status: Full Code Admission Exam Per Admitting Provider General: A&Ox3. NAD. Cooperative. HEENT: Atraumatic, normocephalic. Vision/hearing intact. PERLAA Pulm: CTAB A&P. -wheezes, -rales, -rhonchi. Symmetrical chest rise. No increased work of breathing. No respiratory distress. Cardiac: irir, -mrg. Radial pulses intact and symmetrical. Ext: warm, dry. moves all extremities equally Principal Diagnosis Atrial Flutter with RVR Discharge Exam Constitutional: well-appearing, no acute distress HEENT: NCAT, no conjunctival injection CV: tachycardic, extremities well-perfused, no LE edema Resp: no increased work of breathing GI: nondistended MSK: no gross deformities appreciated Skin: warm, dry, no rash appreciated Neuro: alert, oriented, no focal neurologic deficit appreciated Discharge Data Allergies Allergy/AdvReac Type Severity Reaction Status Date / Time amoxicillin Allergy Intermediate RASH Verified 03/24/25 07:24 ciprofloxacin [Cipro] Allergy Intermediate RASH Verified 03/24/25 07:24 nitrofurantoin Allergy Intermediate GI UPSET Verified 03/24/25 07:24 Sulfa (Sulfonamide Allergy Unknown CAN'T Verified 03/24/25 07:24 Antibiotics) REMEMBER Penicillins AdvReac Unknown TAKES Verified 03/24/25 07:24 AMOXIL NO OCCASSION--NO PROBS Consultations 04/17/25 19:50 Consult Cardiology Routine Hospital Course (1) Atrial flutter with rapid ventricular response: Josy is a 75yo F with no significant PMHx who presents with recurrent aflutter w/ RVR. She takes no regular medications other than Eliquis for stroke ppx. She was admitted for cardiology eval, potential repeat cardioversion. She will be safe for discharge when appropriate medication regimen is established, and will follow up with cardiology for ablation. Recurrent atrial flutter Discharged 03/24/2025 after an admission for atrial flutter s/p MCKENZIE followed by electrical cardioversion 03/24/2025 with return to sinus Has been on Eliquis since discharge on 03/24. Reports strict adherence Abrupt onset of sx shortly after lunch on 04/17. Olema palpitations. Was able to eat her meal, no n/v. No chest pain or dyspnea. Cardizem gtt started on admission but caused hypotension Recent echo showed borderline-reduced LV systolic function with EF 50-55%, no structural or valvular abnormalities Rates improved reasonably well - 60s - 120s at time of discharge Cardiology consulted, appreciated input Started on Multaq. - Continue on discharge 400mg BID Metoprolol tartrate 50mg BID - continue on discharge Pending ablation as outpatient procedure for definitive treatment - cardiology to arrange Follow up with cardiology in 1-2 weeks Total Time Total Time Spent Total Time Spent (In Minutes): <30 Discharge Plan Discharge Items Patient Disposition: Home - Self-Care Reason For Visit: AFLUTTER RVR Discharge Diagnosis: Atrial Flutter with RVR Condition on Discharge: Good Activity: Resume your previous activity Activity Comment: as tolerated Non-emergency contact: Primary Care Provider and Traveler Changer Call non-emergency contact if: you have any medication questions and your symptoms worsen Follow-up/Referrals: Torsten Lopez MD [Physician] - Lia Roman MD [Primary Care Provider] - Diet: Heart Healthy Addtl Attending Provider Instructions: You were admitted to the hospital for rapid heart rate (atrial flutter). This was the same rhythm you were in prior to your cardioversion. You were treated with medications to control the rate and rhythm of your heart. Your heart rate has improved since admission. Your heart rhythm remains in atrial flutter. You will continue to take medication when you return home. See below for new medication instructions. Cardiology will see you in their office in 1-2 weeks. You will be scheduled for a PCP appointment next week. You can continue to take an oral magnesium supplement. Start by taking 400mg at bedtime. If you continue to have leg cramps you can take 400mg in the morning and at bedtime. You should check your heart rate and blood pressure a few times a day. Please log these with the time you took them and bring a log to your appointments. Reasons to return to the hospital: Fast heart rate that results in any chest pain or shortness of breath (the actual number is less important than your symptoms) Feeling lightheaded or dizzy with a low blood pressure (again the number is less important than symptoms) Be sure to drink plenty of water as this will help to support your blood pressure and heart rate. A discharge summary will be sent to your primary care physician to ensure continuity of care. Please bring this discharge summary with you to your next office appointment so that your provider can review it at that time. Follow-up appointments: We have requested a follow-up appointment with your primary care physician within one week of discharge. Please call their office ([facility] phone number ) if you do not hear from them. The cardiology office should reach out to schedule a follow up appointment. If you do not hear from them you can call their office at: Keep all your follow-up appointments as already scheduled. If you cannot make an appointment, notify your provider. Medications: Your medication list has been reviewed and reconciled upon discharge to ensure accuracy and continuity of care. An updated list of all your medications is included with your hospital discharge paperwork. Please review this list closely, and make note of any changes. We sent a new medication called dronedarone to your pharmacy. Take dronedarone (400mg) one tablet twice daily. We sent a new medication called metoprolol tartrate to your pharmacy. Take metoprolol (50mg) one tablet twice daily. If you have any issues filling these prescriptions, please call [phone] and ask to leave a message for Dr. Dutch Herring. Take your medications as instructed; do not skip a dose of your medicines. Make sure all of your doctors know every medicine you are taking (including otmr-ubv-rtieaco medicines, vitamins, and supplements). Call your primary care provider before taking any new medicines (including dmhn-ctn-qouarpn medicines, vitamins, and supplements), because some of these may interact with your current medications, or may make your symptoms worse. Tell your primary care provider if you cannot afford your medications. CONTACT YOUR PRIMARY CARE PROVIDER if you experience any of the following: Increased heart rate that causes chest pain or shortness of breath Low blood pressure that causes dizziness or lightheadedness Difficulty following your treatment plan, or difficulty taking medications CALL 911 OR GO TO THE EMERGENCY DEPARTMENT if you experience any of the following: Sudden, severe abdominal pain or nausea/vomiting Severe chest pain, or chest pain that radiates (moves) to your jaw or arm Sudden, severe shortness of breath or difficulty breathing Thank you for allowing us to participate in your care. Pending Studies at Discharge: No Stand-Alone Forms: [facility] Medications and DC Order Prescriptions: New metoprolol tartrate 50 mg tablet 50 mg PO BID Qty: 60 1RF Multaq 400 mg tablet 400 mg PO BID Qty: 60 1RF Continued calcium carbonate-vitamin D3 600 mg-10 mcg (400 unit) capsule 1 cap PO DAILY cholecalciferol (vitamin D3) 50 mcg (2,000 unit) capsule 50 mcg PO Q OTHER DAY Eliquis 5 mg Tablet 5 mg PO BID Qty: 60 5RF Discharge Orders: Discharge Order (Routine); Ordered 04/19/25 Ordered By: Dutch Herring Admission Data Admit Date/Time: 04/17/25 19:47 Attending Provider: Almas Tee Admit Provider: Dylan Millan Primary Care Provider: Lia Roman Other Providers: Torsten Lopez Other Interventions: Discharge Summary Assessment (RN) Last Done: 04/19/25 13:33 Supervising Physician Co-Signing Physician Notes I personally examined the patient and verified all braun points of history and exam, discussed case, and agree with decision making with Dr Herring Feels okay. Discussed risk/benefit of going homeshe feels up to going home. Family presentanswered all questions the best my ability and to their satisfaction. vitals noted nad heent nc at mmm tachycardic But on monitor rates are now ranging from predominantly 801 20, and sometimes lower whenever she is asleep. breathing unlabored no accessory muscles good effort skin no rashes no pallor or icterus neuro no focal deficits aflutter/RVR - greatly appreciate cardiology input. rhythm plan per their guidance. Rates are overall more reasonable and quite good whenever she is at rest. Tolerating medications well. Asymptomatic. Safe/stable for home, anticipate ablation in the near future leg cramps - magnesium helpeddiscussed Mag-Ox at home anticoagulated otherwise as above Resident Activity Tracking Resident Involvement: Resident Care Provided Care Provided: Adult Hospital Medicine
[2025-04-19 14:05] VITALS: PULSE 61
--- NOTE | 2025-04-19 16:40 | Billing Data ---
Date of Service April 19, 2025 Coding Level of Care Code 13356 IN/OBS DISCH 30 MIN/LESS
--- NOTE | 2025-04-20 12:39 | Electrocardiogram Report ---
Test Reason : Blood Pressure : */* mmHG Vent. Rate : 117 BPM Atrial Rate : 234 BPM P-R Int : * ms QRS Dur : 76 ms QT Int : 300 ms P-R-T Axes : 94 86 67 degrees QTcB Int : 419 ms Atrial flutter with variable A-V block Abnormal ECG When compared with ECG of 17-Apr-2025 17:13, (unconfirmed) No significant change Confirmed by Torsten Lopez ([id number]) on 04/20/2025 12:39:11 PM Referred By: REFERRED SELF Confirmed By: Torsten Lopez
--- NOTE | 2025-04-20 22:18 | Electrocardiogram Report ---
Test Reason : Blood Pressure : */* mmHG Vent. Rate : 123 BPM Atrial Rate : 246 BPM P-R Int : * ms QRS Dur : 66 ms QT Int : 294 ms P-R-T Axes : 94 174 46 degrees QTcB Int : 420 ms Atrial flutter with 2:1 A-V conduction Right axis deviation Pulmonary disease pattern Abnormal ECG When compared with ECG of 17-Apr-2025 17:02, (unconfirmed) No significant change Confirmed by Torsten Lopez ([id number]) on 04/20/2025 10:17:46 PM Referred By: REFERRED SELF Confirmed By: Torsten Lopez
--- NOTE | 2025-04-20 22:19 | Electrocardiogram Report ---
Test Reason : Blood Pressure : */* mmHG Vent. Rate : 124 BPM Atrial Rate : 248 BPM P-R Int : * ms QRS Dur : 66 ms QT Int : 306 ms P-R-T Axes : 92 166 49 degrees QTcB Int : 439 ms Atrial flutter with 2:1 A-V conduction Right axis deviation Abnormal ECG When compared with ECG of 24-Mar-2025 08:20, Atrial flutter has replaced Sinus rhythm Vent. rate has increased by 51 bpm Confirmed by Torsten Lopez ([id number]) on 04/20/2025 10:19:19 PM Referred By: REFERRED SELF Confirmed By: Torsten Lopez
== END 2025-04-19 15:26 | disposition home or self-care (01) | DRG 310 ==
LOC: ED 16:51 → 2S 19:47 → SUATTDRO 19:47 → 2S 20:05